=== PATIENT | male | born 1950 ===

== ENCOUNTER 2016-09-05 12:22 | Inpatient (IN) | payer OTHER ==
[2016-09-05 13:20] LABS: BASO # 0.1 K/uL (0.0-0.2); BASO % 0.9 % (0.0-2.0); EOS # 0.2 K/uL (0.0-0.7); EOS % 2.2 % (0.0-4.0); HEMOGLOBIN 11.6 g/dL (12.0-18.0); LYMPH # 1.9 K/uL (1.0-4.3); LYMPH % 25.7 % (20.0-40.0); MEAN CELL VOLUME 88.8 fL (80.0-94.0); MEAN CORPUSCULAR HEMOGLOBIN 29.7 pg (27.0-31.0); MEAN CORPUSCULAR HGB CONC 33.5 g/dL (33.0-37.0); MEAN PLATELET VOLUME 8.2 fL (7.2-11.7); MONO # 0.3 K/uL (0.0-0.8); MONO % 4.5 % (0.0-10.0); NEUT % 66.7 % (50.0-75.0); RBC 3.91 Mil/uL (4.40-5.90); WHITE BLOOD COUNT 7.5 K/uL (4.8-10.8)
[2016-09-05 13:24] LABS: ALBUMIN 4.2 g/dL (3.5-5.0)
[2016-09-05 13:26] LABS: GFR AFRICAN-AMERICAN > 60; GFR NON-AFRICAN AMERICAN 56
[2016-09-05 13:27] LABS: ALB/GLOB RATIO 1.4 (1.0-2.1); ALT/SGPT 24 U/L (21-72); AST/SGOT 26 U/L (17-59); BLOOD UREA NITROGEN 21 mg/dL (9-20)
[2016-09-05 13:28] LABS: CALCIUM 9.3 mg/dl (8.6-10.4); LIPASE 397 U/L (23-300)
--- NOTE | 2016-09-05 13:43 | C.PDOC ---
History Of Present Illness 66 y/o male with Hx of HTN and DM presents to ED with complaints of General body aches, sob and vomiting since this morning. Patient states he went to sleep fine last night and woke up with symptoms this morning. Patient denies fever, chills, dizziness, loc or any other complaints at this time. Contrary to triage patient denies chest pain and reports a general body pain. Time Seen by Provider: 09/05/16 13:30 Chief Complaint (Nursing): Chest Pain History Per: Patient History/Exam Limitations: no limitations Onset/Duration Of Symptoms: Hrs Past Medical History Reviewed: Historical Data, Nursing Documentation, Vital Signs Vital Signs: Last Vital Signs Temp 97.6 F 09/05/16 14:55 Pulse 79 09/05/16 14:55 Resp 14 09/05/16 14:55 BP 112/63 09/05/16 14:55 Pulse Ox 95 09/05/16 14:55 - Medical History PMH: HTN Surgical History: Appendectomy Family History: States: No Known Family Hx - Social History Hx Alcohol Use: No Hx Substance Use: No Review Of Systems Constitutional: Negative for: Fever, Chills Cardiovascular: Negative for: Chest Pain Respiratory: Positive for: Shortness of Breath Gastrointestinal: Positive for: Nausea, Vomiting. Negative for: Diarrhea Genitourinary: Negative for: Dysuria Musculoskeletal: Negative for: Back Pain Skin: Negative for: Rash Neurological: Negative for: Dizziness Physical Exam - Physical Exam Additional Physical Exam Comments: Constitutional: No acute distress. Head: Normocephalic. Atraumatic. Eyes: PERRL. ENT: Moist mucous membranes. Neck: Supple. Cardiovascular: Regular rate. Radial pulse 2+ bilaterally. Chest: No tenderness. Respiratory: Clear to auscultation bilaterally. GI: Soft. Epigastric Tenderness, no rebound or guarding Back: No CVA tenderness. Musculoskeletal: No tenderness or swelling of extremities. Skin: No rash. Neurologic: Alert, no focal deficit. ED Course And Treatment - Laboratory Results Result Diagrams: 09/05/16 13:04 09/05/16 13:04 ECG Rhythm: Sinus Rhythm ECG Interpretation: Normal Rate From EC (bpm) O2 Sat by Pulse Oximetry: 97 (RA) Pulse Ox Interpretation: Normal Medical Decision Making Medical Decision Making: CXR no acute disease. Lipase elevated. Abdominal US ordered. Dr. Griffith accepts patient for admission for acute pancreatitis. Disposition - Disposition Disposition: HOSPITALIZED Disposition Time: 15:03 Condition: FAIR - Clinical Impression Clinical Impression: Acute pancreatitis
--- NOTE | 2016-09-05 16:47 | RAD ---
HISTORY: body aches, cough COMPARISON: No prior. TECHNIQUE: Chest PA and lateral FINDINGS: LUNGS: No evidence of focal infiltrate or consolidation in the lungs. Small bibasilar atelectasis seen. PLEURA: No significant pleural effusion identified. No pneumothorax apparent. CARDIOVASCULAR: Normal. OSSEOUS STRUCTURES: No significant abnormalities. VISUALIZED UPPER ABDOMEN: Normal. OTHER FINDINGS: None. IMPRESSION: No radiographic evidence of pneumonia. No evidence of acute pulmonary disease. Small bibasilar atelectasis.
--- NOTE | 2016-09-05 17:02 | CP.PCM.HP ---
<TatiMandy - Last Filed: 09/05/16 18:43> History of Present Illness - History of Present Illness History of Present Illness: CC: "abdominal pain" 66 year old male with PMHx of DM, HTN, high cholesterol and triglycerides in the 999's presents with 1 days history of abdominal pain, back pain, nausea, vomiting. Patient recently arrived from [facility] in June 2016 and has not seen a doctor since then. Patient began to feel ill since yesterday but went to work today anyway. While at work patient felt like he was going to faint. Admits to dizziness and "passing out". Denies LOC, head trauma, fall. As per , patient has felt like this before when his triglycerides were very high. Admits to diffuse abdominal pain that radiates to the back. Admits to nausea and vomiting once today. Patient denies history of pancreatitis. Denies fevers, chills, diarrhea, constipation, SOB. Patient has no chest pain now or before. PMHx: DM, HTN, high cholesterol and triglycerides in the Medications: Glyburide 5 mg PO daily, Simvastatin 40 mg PO HS, Metformin 850 mg PO daily, Losartan 100 mg PO daily, Amlodipine 10 mg po at night, Gemfibrozil 600 mg PO BID. Surgery Hx: Appendectomy. Social Hx: quit heavy alcohol use 10 years ago. Drinks socially on the weekends. Quit tobacco abuse 10 years ago. Non smoker at this time. Denies drug use. Family Hx: monther with DM. Allergies: NKDA PMD: in [facility]. Present on Admission - Present on Admission Any Indicators Present on Admission: No Review of Systems - Constitutional Constitutional: Malaise. absent: Chills, Fatigue, Fever, Headache - EENT Eyes: absent: Blurred Vision, Change in Vision Ears: Dizziness - Cardiovascular Cardiovascular: absent: Chest Pain, Diaphoresis, Dyspnea, Pedal Edema - Respiratory Respiratory: absent: Cough, Dyspnea, Wheezing - Gastrointestinal Gastrointestinal: Abdominal Pain, Nausea, Vomiting. absent: Constipation, Diarrhea - Genitourinary Genitourinary: absent: Difficulty Urinating, Dysuria - Musculoskeletal Musculoskeletal: Back Pain. absent: Numbness, Tingling - Integumentary Integumentary: absent: Wounds - Neurological Neurological: Dizziness, Weakness. absent: Numbness, Tingling - Psychiatric Psychiatric: absent: Anxiety - Endocrine Endocrine: Fatigue. absent: Palpitations Past Patient History - Past Social History Smoking Status: Never Smoked - CARDIAC Hx Hypertension: Yes - ENDOCRINE/METABOLIC Hx Endocrine Disorders: Yes Hx Diabetes Mellitus Type 2: Yes - PSYCHIATRIC Hx Substance Use: No - SURGICAL HISTORY Hx Appendectomy: Yes Meds Allergies/Adverse Reactions: Allergies Allergy/AdvReac Type Severity Reaction Status Date / Time No Known Allergies Allergy Verified 09/05/16 12:38 Physical Exam - Constitutional Appears: No Acute Distress - Head Exam Head Exam: NORMAL INSPECTION - Eye Exam Eye Exam: EOMI, Normal appearance - ENT Exam ENT Exam: Mucous Membranes Moist - Neck Exam Neck exam: Positive for: Full Rom, Normal Inspection - Respiratory Exam Respiratory Exam: Clear to Auscultation Bilateral, NORMAL BREATHING PATTERN - Cardiovascular Exam Cardiovascular Exam: REGULAR RHYTHM, +S1, +S2 - GI/Abdominal Exam GI & Abdominal Exam: Normal Bowel Sounds, Soft, Tenderness (mild/epigastric). absent: Distended - Extremities Exam Extremities exam: Positive for: full ROM, normal inspection. Negative for: pedal edema - Back Exam Back exam: NORMAL INSPECTION. absent: CVA tenderness (L), CVA tenderness (R) - Neurological Exam Neurological exam: Alert, Oriented x3 - Psychiatric Exam Psychiatric exam: Normal Affect, Normal Mood - Skin Skin Exam: Normal Color, Warm Results - Vital Signs Recent Vital Signs: Last Vital Signs Temp 97.6 F 09/05/16 14:55 Pulse 79 09/05/16 14:55 Resp 14 09/05/16 14:55 BP 112/63 09/05/16 14:55 Pulse Ox 97 09/05/16 16:10 - Labs Result Diagrams: 09/05/16 13:04 09/05/16 13:04 Assessment & Plan (1) Acute pancreatitis Assessment and Plan: Admit to regular floor Lipase 397 CLD for now Aggresive fluid hydration. Normal Saline at 200 cc/hr Zofran IVP PRN for nausea Denies alcohol use. f/u lipid panel in the AM. Patient with reported history of triglycerides in the 1000's. f/u Amylase in the AM f/u AM labs Status: Acute (2) Dizziness Assessment and Plan: Patient felt like he is going to "pass out". f/u ECHO f/u carotid dopplers Status: Acute (3) Hyperlipidemia Assessment and Plan: Patient with reported history of triglycerides in the 1000's. f/u fasting lipid panel in the AM. Gemfibrozil 600 mg PO BID (home med) Status: Acute (4) Diabetes mellitus Assessment and Plan: Consistent carbohydrate clear liquid diet f/u Hgb A1c in the AM Insulin sliding scale Accu checks ACHS Status: Acute (5) Prophylactic measure Assessment and Plan: SCDs Heparin 5000 U SC Q8H Protonix 40 mg IVP daily Status: Acute <Eduard Griffith - Last Filed: 09/06/16 13:23> Results - Vital Signs Recent Vital Signs: Last Vital Signs Temp 97.6 F 09/06/16 07:31 Pulse 62 09/06/16 07:31 Resp 20 09/06/16 07:31 BP 110/62 09/06/16 07:31 Pulse Ox 98 09/06/16 07:31 - Labs Result Diagrams: 09/06/16 07:15 09/06/16 07:11 Labs: Laboratory Results - last 24 hr 09/05/16 09/06/16 09/06/16 21:37 02:11 07:00 WBC RBC Hgb Hct MCV MCH MCHC RDW Plt Count MPV Neut % (Auto) Lymph % (Auto) [place] % (Auto) Eos % (Auto) Baso % (Auto) Neut # Lymph # [place] # Eos # Baso # Sodium Potassium Chloride Carbon Dioxide Anion Gap BUN Creatinine Est GFR ( Amer) Est GFR (Non-Af Amer) POC Glucose (mg/dL) 100 98 Random Glucose Calcium Total Bilirubin AST ALT Alkaline Phosphatase Total Protein Albumin Globulin Albumin/Globulin Ratio Triglycerides Cholesterol LDL Cholesterol Direct HDL Cholesterol Urine Color Straw Urine Clarity Clear Urine pH 6.0 Ur Specific [place] 1.010 Urine Protein Negative Urine Glucose (UA) Normal Urine Ketones Negative Urine Blood 2+ H Urine Nitrate Negative Urine Bilirubin Negative Urine Urobilinogen Normal Ur Leukocyte Esterase Neg Urine WBC (Auto) 1 Urine RBC (Auto) 8 H 09/06/16 09/06/16 09/06/16 07:02 07:11 07:15 WBC 7.2 RBC 3.77 L Hgb 11.3 L Hct 33.5 L MCV 89.0 MCH 30.0 MCHC 33.7 RDW 12.9 Plt Count 319 MPV 8.4 Neut % (Auto) 61.1 Lymph % (Auto) 29.1 [place] % (Auto) 5.1 Eos % (Auto) 4.2 H Baso % (Auto) 0.5 Neut # 4.4 Lymph # 2.1 [place] # 0.4 Eos # 0.3 Baso # 0.0 Sodium 138 Potassium 4.1 Chloride 107 Carbon Dioxide 22 Anion Gap 12 BUN 14 Creatinine 0.9 Est GFR ( Amer) > 60 Est GFR (Non-Af Amer) > 60 POC Glucose (mg/dL) 108 Random Glucose 89 Calcium 8.0 L Total Bilirubin 0.7 AST 24 ALT 24 Alkaline Phosphatase 51 Total Protein 6.3 Albumin 3.5 Globulin 2.8 Albumin/Globulin Ratio 1.3 Triglycerides 206 H Cholesterol 214 H LDL Cholesterol Direct 126 HDL Cholesterol 39 Urine Color Urine Clarity Urine pH Ur Specific [place] Urine Protein Urine Glucose (UA) Urine Ketones Urine Blood Urine Nitrate Urine Bilirubin Urine Urobilinogen Ur Leukocyte Esterase Urine WBC (Auto) Urine RBC (Auto) 09/06/16 11:14 WBC RBC Hgb Hct MCV MCH MCHC RDW Plt Count MPV Neut % (Auto) Lymph % (Auto) [place] % (Auto) Eos % (Auto) Baso % (Auto) Neut # Lymph # [place] # Eos # Baso # Sodium Potassium Chloride Carbon Dioxide Anion Gap BUN Creatinine Est GFR ( Amer) Est GFR (Non-Af Amer) POC Glucose (mg/dL) 89 Random Glucose Calcium Total Bilirubin AST ALT Alkaline Phosphatase Total Protein Albumin Globulin Albumin/Globulin Ratio Triglycerides Cholesterol LDL Cholesterol Direct HDL Cholesterol Urine Color Urine Clarity Urine pH Ur Specific [place] Urine Protein Urine Glucose (UA) Urine Ketones Urine Blood Urine Nitrate Urine Bilirubin Urine Urobilinogen Ur Leukocyte Esterase Urine WBC (Auto) Urine RBC (Auto) Attending/Attestation - Attestation I have personally seen and examined this patient.: Yes I have fully participated in the care of the patient.: Yes I have reviewed all pertinent clinical information: Yes Notes (Text): 09/06/16 13:21 Patient was seen and examined at bedside with the resident at the time of admission Patient admitted for acute pancreatitis He is complaining of abdominal pain and is tender to palpation We'll start the patient clear liquid diet and also put on high a dose of fluids Patient has history of hyperlipidemia which could be the etiology of for acute pancreatitis We will check lipid profile in the morning I agree with the history and physical and assessment/plan by the resident.
--- NOTE | 2016-09-05 17:50 | US ---
HISTORY: pancreatitis COMPARISON: None. TECHNIQUE: Sonographic evaluation of the abdomen. FINDINGS: LIVER: Measures 17.4 cm. Heterogeneous increased echogenicity of the liver parenchyma. No mass. No intrahepatic bile duct dilatation. GALLBLADDER: Unremarkable. No gallstones. COMMON BILE DUCT: Measures 3.5 mm. No stones. No dilatation. PANCREAS: Unremarkable as visualized. No mass. No ductal dilatation. RIGHT KIDNEY: Measures 11.9 x 5.4 x 6.4cm. Normal echogenicity. No calculus, mass, or hydronephrosis. There are cystic lesions seen at the right kidney. The largest cyst measures 4.2 x 3.5 x 2.9 centimeter. LEFT KIDNEY: Measures 12.9 x 5.8 x 5.4cm. There is suspicious for mass lesion at the upper pole of the left kidney measures 4 x 2.9 x 3.2 centimeter demonstrate increased blood flow. The possibility of malignant neoplasm should be excluded. There is also cyst seen at the left kidney mid to lower pole measures 3.9 x 4.1 x 4.3 centimeter. SPLEEN: Normal in size and contour. No mass. AORTA: No aneurysmal dilatation. IVC: Unremarkable. OTHER FINDINGS: None. IMPRESSION: No evidence of cholelithiasis or cholecystitis. Mild hepatomegaly with findings suggestive of moderate hepatic steatosis. Suspicious for solid mass lesion at the upper pole of the left kidney measures 4 centimeter. Further assessment is recommended. The possibility of malignant neoplasm should be considered. Enhanced CT or MRI of the abdomen is suggested using renal protocol.
[2016-09-05] MEDS: Sodium Chloride 0.9% 1,000 ML IV SCH ×2 (18:53→22:15)
[2016-09-05 19:08] LABS: AMYLASE 93 U/L (30-110)
[2016-09-05] MEDS: (Novolin R) Insulin Human Regular 100 units/ml vial SC SCH (22:06)
[2016-09-06 00:16] VITALS: RESP 20
--- NOTE | 2016-09-06 01:39 | CP.PCM.PN ---
<Kasie Alarcon - Last Filed: 09/06/16 08:36> Subjective - Date & Time of Evaluation Date of Evaluation: 09/06/16 Time of Evaluation: 00:00 - Subjective Subjective: PGY-1 Medicine note- Dr. Griffith's service Patient was examined at bedside this AM. Patient denied chest pain, shortness of breath, diarrhea, or constipation. Objective - Vital Signs/Intake and Output Vital Signs (last 24 hours): Temp Pulse Resp BP Pulse Ox 98 F 74 20 115/66 99 09/06/16 00:00 09/06/16 00:00 09/06/16 00:00 09/06/16 00:00 09/06/16 00:00 - Medications Medications: Current Medications Amlodipine Besylate (Norvasc) 5 mg PO HS [facility] Last Admin: 09/05/16 22:12 Dose: 5 mg Gemfibrozil (Lopid) 600 mg PO BID [facility] Heparin Sodium (Porcine) (Heparin) 5,000 units SC Q8 [facility] Last Admin: 09/05/16 22:15 Dose: 5,000 units Sodium Chloride (Sodium Chloride 0.9%) 1,000 mls @ 200 mls/hr IV .Q5H [facility] Last Admin: 09/05/16 22:15 Dose: 200 mls/hr Insulin Human Regular (Novolin R) 0 unit SC ACHS [facility] PRN Reason: Protocol Last Admin: 09/05/16 22:06 Dose: Not Given Losartan Potassium (Cozaar) 100 mg PO QAM [facility] Ondansetron HCl (Zofran Inj) 4 mg IVP Q6 PRN PRN Reason: Nausea/Vomiting Pantoprazole Sodium (Protonix Inj) 40 mg IVP DAILY [facility] Pneumococcal Polyvalent Vaccine (Pneumovax 23 Vaccine) 0.5 ml IM .ONCE ONE Stop: 09/07/16 10:01 Rosuvastatin Calcium (Crestor) 20 mg PO [facility] Last Admin: 09/05/16 22:12 Dose: 20 mg - Constitutional Appears: No Acute Distress - Head Exam Head Exam: NORMAL INSPECTION, NORMOCEPHALIC - Respiratory Exam Respiratory Exam: Clear to Ausculation Bilateral, NORMAL BREATHING PATTERN - Cardiovascular Exam Cardiovascular Exam: REGULAR RHYTHM, +S1, +S2 - GI/Abdominal Exam GI & Abdominal Exam: Soft, Normal Bowel Sounds. absent: Tenderness - Neurological Exam Neurological Exam: Alert, Awake, Oriented x3 Assessment and Plan - Assessment and Plan (Free Text) Assessment: 66 year old male with PMHx of DM, HTN, high cholesterol and triglycerides in the presents with 1 days history of abdominal pain, back pain, nausea, vomiting. Plan: 1.) Acute Pancreatitis Admit to regular floor Lipase 397 CLD for now Aggresive fluid hydration. Normal Saline at 200 cc/hr Zofran IVP PRN for nausea Denies alcohol use. Cholesterol: 214; LDL: 123; HDL: 39; Triglycerides: 206 Amylase: 93 2.) Dizziness Patient felt like he is going to "pass out". f/u ECHO f/u carotid dopplers 3.) Hyperlipidemia Patient with reported history of triglycerides in the . Cholesterol: 214; LDL: 123; HDL: 39; Triglycerides: 206 Gemfibrozil 600 mg PO BID (home med) Crestor 20mg PO HS 4.) Diabetes Mellitus Consistent carbohydrate clear liquid diet f/u Hgb A1c in the AM Insulin sliding scale Accu checks ACHS 5.) Prophylaxis SCDs Heparin 5000 U SC Q8H Protonix 40 mg IVP daily <Eduard Griffith - Last Filed: 09/06/16 15:18> Objective - Vital Signs/Intake and Output Vital Signs (last 24 hours): Temp Pulse Resp BP Pulse Ox 97.6 F 62 20 110/62 98 09/06/16 07:31 09/06/16 07:31 09/06/16 07:31 09/06/16 07:31 09/06/16 07:31 Intake and Output: 09/06/16 09/06/16 06:59 18:59 Intake Total 1900 1700 Output Total 700 Balance 1200 1700 - Medications Medications: Current Medications Amlodipine Besylate (Norvasc) 5 mg PO HS [facility] Last Admin: 09/05/16 22:12 Dose: 5 mg Gemfibrozil (Lopid) 600 mg PO BID [facility] Last Admin: 09/06/16 10:21 Dose: 600 mg Heparin Sodium (Porcine) (Heparin) 5,000 units SC Q8 [facility] Last Admin: 09/06/16 13:44 Dose: 5,000 units Sodium Chloride (Sodium Chloride 0.9%) 1,000 mls @ 200 mls/hr IV .Q5H [facility] Last Admin: 09/06/16 10:22 Dose: 200 mls/hr Insulin Human Regular (Novolin R) 0 unit SC ACHS [facility] PRN Reason: Protocol Last Admin: 09/06/16 11:48 Dose: Not Given Losartan Potassium (Cozaar) 100 mg PO QAM [facility] Last Admin: 09/06/16 10:21 Dose: 100 mg Ondansetron HCl (Zofran Inj) 4 mg IVP Q6 PRN PRN Reason: Nausea/Vomiting Pantoprazole Sodium (Protonix Inj) 40 mg IVP DAILY [facility] Last Admin: 09/06/16 10:21 Dose: 40 mg Pneumococcal Polyvalent Vaccine (Pneumovax 23 Vaccine) 0.5 ml IM .ONCE ONE Stop: 09/07/16 10:01 Rosuvastatin Calcium (Crestor) 20 mg PO HS [facility] Last Admin: 09/05/16 22:12 Dose: 20 mg - Labs Labs: 09/06/16 07:15 09/06/16 07:11 Attending/Attestation - Attestation I have personally seen and examined this patient.: Yes I have fully participated in the care of the patient.: Yes I have reviewed all pertinent clinical information, including history, physical exam and plan: Yes Notes (Text): 09/06/16 15:11 Patient was seen and examined at bedside He states that he still has the mild abdominal discomfort in the epigastric region He also states that he is feeling hungry and he wants to eat We will continue IV hydration-we will advance the diet to soft diet We will monitor for any increase in abdominal pain Patient's acute pancreatitis is likely secondary to hypertriglyceridemia. We'll continue his medication for hypertriglyceridemia and hypercholesterolemia Abdominal ultrasound shows solid mass on the left kidney and we will obtain a CT scan of the abdomen and pelvis with renal protocol We will also obtain a urology evaluation Patient also had a syncopal episode of for syncope workup is in progress Carotid Dopplers were done which are negative neck and follow-up echocardiogram. I agree with the history and physical and assessment/plan by the resident with the exceptions noted hair.
[2016-09-06] MEDS: Sodium Chloride 0.9% 1,000 ML IV SCH ×5 (03:30→23:15)
[2016-09-06 07:28] LABS: BASO % 0.5 % (0.0-2.0); EOS # 0.3 K/uL (0.0-0.7); EOS % 4.2 % (0.0-4.0); HEMOGLOBIN 11.3 g/dL (12.0-18.0); LYMPH # 2.1 K/uL (1.0-4.3); LYMPH % 29.1 % (20.0-40.0); MEAN CORPUSCULAR HGB CONC 33.7 g/dL (33.0-37.0); MEAN PLATELET VOLUME 8.4 fL (7.2-11.7); MONO # 0.4 K/uL (0.0-0.8); MONO % 5.1 % (0.0-10.0); NEUT # 4.4 K/uL (1.8-7.0); NEUT % 61.1 % (50.0-75.0); RBC 3.77 Mil/uL (4.40-5.90); RED CELL DISTRIBUTION WIDTH 12.9 % (11.5-14.5); WHITE BLOOD COUNT 7.2 K/uL (4.8-10.8)
[2016-09-06] MEDS: (Novolin R) Insulin Human Regular 100 units/ml vial SC SCH ×4 (07:30→21:24)
[2016-09-06 07:44] LABS: ALBUMIN 3.5 g/dL (3.5-5.0)
[2016-09-06 07:47] LABS: ALB/GLOB RATIO 1.3 (1.0-2.1); AST/SGOT 24 U/L (17-59); BLOOD UREA NITROGEN 14 mg/dL (9-20); GFR AFRICAN-AMERICAN > 60; GFR NON-AFRICAN AMERICAN > 60
[2016-09-06 07:48] LABS: ALT/SGPT 24 U/L (21-72); HDL CHOLESTEROL 39 mg/dL (30-70)
[2016-09-06 07:59] LABS: LDL CHOLESTEROL 126 mg/dL (0-129)
[2016-09-06 08:25] LABS: URINE BILIRUBIN NEGATIVE (NEGATIVE); URINE BLOOD 2+ (NEGATIVE); URINE CLARITY Clear (Clear); URINE COLOR Straw (YELLOW); URINE GLUCOSE (UA) NORMAL (Normal); URINE LEUKOCYTE ESTERASE NEG Leu/uL (Negative); URINE NITRATE NEGATIVE (NEGATIVE); URINE PROTEIN NEGATIVE (NEGATIVE); URINE UROBILINOGEN NORMAL mg/dL (0.2-1.0)
--- NOTE | 2016-09-06 11:08 | VASCLAB ---
PROCEDURE: HISTORY: dizziness COMPARISON: None available. TECHNIQUE: Grayscale and duplex Doppler evaluation of the cervical carotid and vertebral arteries were performed. The common carotid, carotid bifurcations and cervical Internal Carotid Artery (ICA) and proximal External Carotid Artery (ECA) were evaluated. The vertebral arteries were evaluated for gross patency and flow direction. Report prepared by Candi Silverman Barb FINDINGS: RIGHT CAROTID ARTERIES: 1. Common Carotid Artery: No significant focal plaque formation of the right common carotid artery. Maximum Peak Systolic velocity: 71.3 cm/sec: End-diastolic velocity 15.9 cm/sec. 2. Carotid Bifurcation: Heterogeneous plaque formation. Maximum Peak Systolic velocity: 47.2 cm/sec: End-diastolic velocity 9.8 cm/sec. 3. Internal Carotid Artery: No significant focal plaque. Plaque description: 3.1. Proximal Segment: Peak systolic velocity 48.3 cm/sec: End-diastolic velocity 0-15% cm/sec - % stenosis 0-15% 3.2. Middle Segment: Peak systolic velocity 54.8 cm/sec: End-diastolic velocity 21.1 cm/sec - % stenosis 0-15% 3.3. Distal Segment: Peak systolic velocity 50.3 cm/sec: End-diastolic velocity 22.9 cm/sec - % stenosis 0-15% 4. External Carotid Artery: No significant focal plaque formation. Peak systolic velocity 79.1 cm/sec 5. ICA/CCA Ratio: 0.9 LEFT CAROTID ARTERIES: 1. Common Carotid Artery: No significant focal plaque formation of the left common carotid artery. Maximum Peak Systolic velocity: 83.4 cm/sec: End-diastolic velocity 14.2 cm/sec. 2. Carotid Bifurcation: Heterogeneous plaque formation. Maximum Peak Systolic velocity: 51.6 cm/sec: End-diastolic velocity 12.0 cm/sec. 3. Internal Carotid Artery: Focal calcific plaque in the proximal segment. 3.1. Proximal Segment: Peak systolic velocity 63.4 cm/sec: End-diastolic velocity 19.0 cm/sec - % stenosis 0-15% 3.2. Middle Segment: Peak systolic velocity 48.1 cm/sec: End-diastolic velocity 14.8 cm/sec - % stenosis 0-15% 3.3. Distal Segment: Peak systolic velocity 49.0 cm/sec: End-diastolic velocity 16.3 cm/sec - % stenosis 0-15% 4. External Carotid Artery: No significant focal plaque formation. Peak systolic velocity 69.8 cm/sec 5. ICA/CCA Ratio: 1.2 VERTEBRAL ARTERIES: 1. Right Vertebral Artery: The right vertebral artery flow direction is antegrade. 2. Left Vertebral Artery: The left vertebral artery flow direction is antegrade. OTHER FINDINGS: 1. Right Brachial Blood pressure: Not optimally obtained. 2. Left Brachial Blood pressure: Not optimally obtained. IMPRESSION: RIGHT: Duplex scan does not suggest hemodynamically significant stenosis of the right extracranial carotid arteries. LEFT: Duplex scan does not suggest hemodynamically significant stenosis of the left extracranial carotid arteries. Focal calcific plaque in the proximal segment of the left internal carotid artery.
--- NOTE | 2016-09-06 18:19 | CT ---
PROCEDURE: CT Abdomen and Pelvis with contrast HISTORY: Renal Mass, R/O Malignant neoplasn COMPARISON: None. TECHNIQUE: Contrast dose: 100 mL Visipaque 320 Radiation dose: Total exam DLP = 755.67 mGy-cm. This CT exam was performed using one or more of the following dose reduction techniques: Automated exposure control, adjustment of the mA and/or kV according to patient size, and/or use of iterative reconstruction technique. FINDINGS: LOWER THORAX: Calcified granuloma in superior segment right lower lobe. LIVER: Unremarkable. No gross lesion or ductal dilatation. GALLBLADDER AND BILE DUCTS: Unremarkable. PANCREAS: Unremarkable. No gross lesion or ductal dilatation. No peripancreatic fluid or edema. SPLEEN: Unremarkable. ADRENALS: Unremarkable. No mass. KIDNEYS AND URETERS: Multiple bilateral renal cysts. Left upper pole heterogeneously enhancing mass measuring 3.6 x 3.9 x 4.7 cm. Suspicious for renal cell neoplasm. Biopsy or excision advised. No hydronephrosis. No renal calculus. VASCULATURE: No evidence of tumor/ thrombus in left renal vein or inferior vena cava. No evidence of abdominal aortic aneurysm. BOWEL: Scattered colonic diverticulae. No evidence of bowel obstruction. APPENDIX: Not identified. No secondary findings to suggest acute appendicitis. PERITONEUM: Unremarkable. No free fluid. No free air. LYMPH NODES: Unremarkable. No enlarged lymph nodes. BLADDER: Suboptimally distended. Mild mural thickening likely secondary to poor distension. REPRODUCTIVE: Normal prostate BONES: No acute fracture. OTHER FINDINGS: None. IMPRESSION: Enhancing 4.7 cm left upper pole renal mass suspicious for renal cell neoplasm. Multiple bilateral renal cysts. No other significant abnormality.
[2016-09-06] MEDS ORDERED: Bisacodyl 5mg EC Tab PO ONE (21:25)
--- NOTE | 2016-09-06 22:02 | CARD ---
APPROVED REPORT EKG Measurement Heart [id number] <Conclusion> Sinus bradycardia Otherwise normal ECG
--- NOTE | 2016-09-06 22:59 | CARD ---
APPROVED REPORT EXAM: Two-dimensional and M-mode echocardiogram with Doppler and color Doppler. Other Information Quality : GoodRhythm : NSR INDICATION Dizziness and Vertigo Dyspnea RISK FACTORS Hyperlipidemia M-Mode DIMENSIONS RVDd1.29 (2.1-3.2cm)Left Atrium (MM)3.79 (2.5-4.0cm) IVSd1.13 (0.7-1.1cm)Aortic Root3.59 (2.2-3.7cm) LVDd5.82 (4.0-5.6cm)Aortic Cusp Exc.1.91 (1.5-2.0cm) PWd1.05 (0.7-1.1cm)FS (%) 29 % LVDs4.14 (2.0-3.8cm)LVEF (%)55 (>50%) Mitral Valve MV E Hcvtgydp27.5cm/sMV A Jbbylfmo05.8cm/sE/A ratio1.7 TDI E/Lateral E'0.0E/Medial E'0.0 Tricuspid Valve TR Peak Rhphfrrj632do/sTR Peak Gr.[id number] LEFT VENTRICLE The left ventricle is normal size. There is normal left ventricular wall thickness. Left ventricle systolic function is normal with Ejection Fraction of 55-60%. There is normal LV segmental wall motion. The left ventricular diastolic function is normal. RIGHT VENTRICLE The right ventricle is normal size. The right ventricular systolic function is normal. ATRIA The left atrium size is normal. The right atrium size is normal. AORTIC VALVE The aortic valve is mildly thickened. The aortic valve is probably trileaflet. There is trace aortic regurgitation. There is no aortic valvular stenosis. There is no aortic valvular vegetation. MITRAL VALVE Mitral annular calcification is mild. There is no evidence of mitral valve prolapse. There is no mitral valve stenosis. Mitral regurgitation is trace. TRICUSPID VALVE The tricuspid valve is normal in structure. There is trace to mild tricuspid regurgitation. Right ventricular systolic pressure is estimated at less than 30 mmHg. There is no pulmonary hypertension. There is no tricuspid valve prolapse or vegetation. There is no tricuspid valve stenosis. PULMONIC VALVE The pulmonic valve is not well visualized. There is no pulmonic valvular regurgitation. GREAT VESSELS The aortic root is normal in size. The IVC is normal in size and collapses >50% with inspiration. PERICARDIAL EFFUSION There is no pericardial effusion. There is no pleural effusion. <Conclusion> The left ventricle is normal size. Left ventricle systolic function is normal. Left ventricle systolic function is normal with Ejection Fraction of 55-60%. The left ventricular diastolic function is normal. The right ventricle is normal size. The right ventricular systolic function is normal. The left atrium size is normal. The right atrium size is normal. There is trace to mild tricuspid regurgitation.
[2016-09-07] MEDS: Sodium Chloride 0.9% 1,000 ML IV SCH ×4 (04:00→21:58)
--- NOTE | 2016-09-07 05:33 | CP.PCM.PN ---
<Kasie Alarcon - Last Filed: 09/07/16 05:24> Subjective - Date & Time of Evaluation Date of Evaluation: 09/07/16 Time of Evaluation: 00:20 - Subjective Subjective: PGY-1 Medicine note- Dr. Griffith's service Patient was examined at bedside this AM. Patient stated he was having bilateral calf pain. Patient stated he has not had a bowel movement in 2 days. Patient stated he had epigastric pain that was tender to touch 7/10. Patient denied chest pain, shortness of breath, difficulty breathing, or palpitations. Objective - Vital Signs/Intake and Output Vital Signs (last 24 hours): Temp Pulse Resp BP Pulse Ox 98.6 F 59 L 20 112/64 98 09/07/16 00:00 09/07/16 00:00 09/07/16 00:00 09/07/16 00:00 09/07/16 00:00 Intake and Output: 09/06/16 09/07/16 18:59 06:59 Intake Total 1700 Balance 1700 - Medications Medications: Current Medications Amlodipine Besylate (Norvasc) 5 mg PO HS [facility] Last Admin: 09/06/16 21:22 Dose: 5 mg Gemfibrozil (Lopid) 600 mg PO BID [facility] Last Admin: 09/06/16 17:37 Dose: 600 mg Heparin Sodium (Porcine) (Heparin) 5,000 units SC Q8 [facility] Last Admin: 09/06/16 21:22 Dose: 5,000 units Sodium Chloride (Sodium Chloride 0.9%) 1,000 mls @ 200 mls/hr IV .Q5H [facility] Last Admin: 09/06/16 23:15 Dose: Not Given Insulin Human Regular (Novolin R) 0 unit SC ACHS [facility] PRN Reason: Protocol Last Admin: 09/06/16 21:24 Dose: Not Given Losartan Potassium (Cozaar) 100 mg PO QAM [facility] Last Admin: 09/06/16 10:21 Dose: 100 mg Ondansetron HCl (Zofran Inj) 4 mg IVP Q6 PRN PRN Reason: Nausea/Vomiting Pantoprazole Sodium (Protonix Inj) 40 mg IVP DAILY [facility] Last Admin: 09/06/16 10:21 Dose: 40 mg Pneumococcal Polyvalent Vaccine (Pneumovax 23 Vaccine) 0.5 ml IM .ONCE ONE Stop: 06/25/17 10:01 Rosuvastatin Calcium (Crestor) 20 mg PO HS [facility] Last Admin: 09/06/16 21:22 Dose: 20 mg - Labs Labs: 09/06/16 07:15 09/06/16 07:11 - Constitutional Appears: No Acute Distress - Head Exam Head Exam: NORMAL INSPECTION, NORMOCEPHALIC - Eye Exam Eye Exam: EOMI, PERRL Pupil Exam: NORMAL ACCOMODATION - ENT Exam ENT Exam: Mucous Membranes Moist - Respiratory Exam Respiratory Exam: Clear to Ausculation Bilateral, NORMAL BREATHING PATTERN. absent: Rales, Rhonchi, Wheezes, Respiratory Distress, Stridor - Cardiovascular Exam Cardiovascular Exam: REGULAR RHYTHM, RRR, +S1, +S2. absent: JVD - GI/Abdominal Exam GI & Abdominal Exam: Soft, Tenderness (epigastric tenderness), Normal Bowel Sounds. absent: Guarding - Extremities Exam Extremities Exam: Tenderness (bilateral calf tenderness). absent: Joint Swelling, Pedal Edema - Neurological Exam Neurological Exam: Alert, Awake, Oriented x3 - Skin Skin Exam: Dry, Intact, Normal Color, Warm. absent: Rash Assessment and Plan - Assessment and Plan (Free Text) Assessment: 66 year old male with PMHx of DM, HTN, high cholesterol and triglycerides in the 999's presents with 1 days history of abdominal pain, back pain, nausea, vomiting. Plan: 1.) Acute Pancreatitis - Admit to regular floor - Lipase 397 - CLD for now - Aggresive fluid hydration. Normal Saline at 200 cc/hr - Zofran IVP PRN for nausea - Denies alcohol use. - Cholesterol: 214; LDL: 123; HDL: 39; Triglycerides: 206 - Amylase: 93 2.) Dizziness - Patient felt like he is going to "pass out". - f/u ECHO -Carotid dopplers (09/05/16): Right duplex scan does not suggeset hemodynamically significant stenosis of the right extra cranial carotid arteries. Left duplex scan does not suggest hemodynamically significant stenosis of the left extra cranial carotis arteries. Focal calcific plaque in the proximal segment of the left internal carotid artery. 3.) Bilateral Calf Pain - f/u bilateral venous doppler 4.) Constipation - Ordered Ducolax 5.) Hyperlipidemia - Patient with reported history of triglycerides in the . - Cholesterol: 214; LDL: 123; HDL: 39; Triglycerides: 206 - Gemfibrozil 600 mg PO BID (home med) - Crestor 20mg PO HS 7.) Diabetes Mellitus - Consistent carbohydrate clear liquid diet - f/u Hgb A1c in the AM - Insulin sliding scale - Accu checks ACHS 8.) Prophylaxis - SCDs - Heparin 5000 U SC Q8H - Protonix 40 mg IVP daily <ÁngelaPeter H - Last Filed: 09/07/16 12:58> Objective - Vital Signs/Intake and Output Vital Signs (last 24 hours): Temp Pulse Resp BP Pulse Ox 97.8 F 56 L 20 124/78 98 09/07/16 07:41 09/07/16 07:41 09/07/16 07:41 09/07/16 07:41 09/07/16 07:41 Intake and Output: 09/07/16 09/07/16 06:59 18:59 Intake Total 1900 Output Total 900 Balance 1000 - Medications Medications: Current Medications Amlodipine Besylate (Norvasc) 5 mg PO HS [facility] Last Admin: 09/06/16 21:22 Dose: 5 mg Gemfibrozil (Lopid) 600 mg PO BID [facility] Last Admin: 09/07/16 11:10 Dose: 600 mg Heparin Sodium (Porcine) (Heparin) 5,000 units SC Q8 [facility] Last Admin: 09/07/16 05:35 Dose: 5,000 units Sodium Chloride (Sodium Chloride 0.9%) 1,000 mls @ 200 mls/hr IV .Q5H [facility] Last Admin: 09/07/16 11:11 Dose: Not Given Insulin Human Regular (Novolin R) 0 unit SC ACHS [facility] PRN Reason: Protocol Last Admin: 09/07/16 11:58 Dose: Not Given Losartan Potassium (Cozaar) 100 mg PO QAM [facility] Last Admin: 09/07/16 11:09 Dose: 100 mg Ondansetron HCl (Zofran Inj) 4 mg IVP Q6 PRN PRN Reason: Nausea/Vomiting Pantoprazole Sodium (Protonix Inj) 40 mg IVP DAILY [facility] Last Admin: 09/07/16 11:10 Dose: 40 mg Rosuvastatin Calcium (Crestor) 20 mg PO HS [facility] Last Admin: 09/06/16 21:22 Dose: 20 mg - Labs Labs: 09/07/16 07:39 06/25/17 07:39 Attending/Attestation - Attestation I have personally seen and examined this patient.: Yes I have fully participated in the care of the patient.: Yes I have reviewed all pertinent clinical information, including history, physical exam and plan: Yes Notes (Text): Medical Attending: Patient was seen and examined by me, agree with the above note by the resident. The patient was seen completely eating lunch and he did ok. He did not vommit, he reported he did have epigastric pain but minimal. The echo was done and was ok, also had normal carotid studies. Abad Motta 09/07/16 12:57
[2016-09-07 07:46] LABS: BASO # 0.1 K/uL (0.0-0.2); BASO % 1.3 % (0.0-2.0); EOS # 0.2 K/uL (0.0-0.7); EOS % 3.5 % (0.0-4.0); HEMOGLOBIN 12.1 g/dL (12.0-18.0); LYMPH % 32.2 % (20.0-40.0); MEAN CELL VOLUME 89.9 fL (80.0-94.0); MEAN CORPUSCULAR HEMOGLOBIN 30.4 pg (27.0-31.0); MEAN CORPUSCULAR HGB CONC 33.8 g/dL (33.0-37.0); MEAN PLATELET VOLUME 8.7 fL (7.2-11.7); MONO # 0.3 K/uL (0.0-0.8); MONO % 4.3 % (0.0-10.0); NEUT # 3.7 K/uL (1.8-7.0); NEUT % 58.7 % (50.0-75.0); RBC 3.98 Mil/uL (4.40-5.90); RED CELL DISTRIBUTION WIDTH 12.8 % (11.5-14.5); WHITE BLOOD COUNT 6.3 K/uL (4.8-10.8)
[2016-09-07 08:02] LABS: ALBUMIN 3.9 g/dL (3.5-5.0)
[2016-09-07 08:04] LABS: GFR AFRICAN-AMERICAN > 60; GFR NON-AFRICAN AMERICAN > 60
[2016-09-07 08:05] LABS: ALB/GLOB RATIO 1.2 (1.0-2.1); AST/SGOT 20 U/L (17-59); BLOOD UREA NITROGEN 11 mg/dL (9-20)
[2016-09-07 08:06] LABS: ALT/SGPT 20 U/L (21-72); CALCIUM 8.6 mg/dl (8.6-10.4); MAGNESIUM 1.8 mg/dL (1.6-2.3)
[2016-09-07] MEDS: (Novolin R) Insulin Human Regular 100 units/ml vial SC SCH ×4 (08:16→21:29)
[2016-09-07] MEDS ORDERED: Pneumococcal 23-Valent Vaccine IM ONE (10:00)
[2016-09-08] MEDS: Sodium Chloride 0.9% 1,000 ML IV SCH ×5 (01:00→21:22)
[2016-09-08 06:33] LABS: BASO % 0.5 % (0.0-2.0); EOS # 0.3 K/uL (0.0-0.7); EOS % 6.5 % (0.0-4.0); HEMOGLOBIN 11.3 g/dL (12.0-18.0); LYMPH # 1.4 K/uL (1.0-4.3); LYMPH % 27.8 % (20.0-40.0); MEAN CELL VOLUME 88.2 fL (80.0-94.0); MEAN CORPUSCULAR HEMOGLOBIN 30.3 pg (27.0-31.0); MEAN CORPUSCULAR HGB CONC 34.4 g/dL (33.0-37.0); MEAN PLATELET VOLUME 8.2 fL (7.2-11.7); MONO # 0.3 K/uL (0.0-0.8); MONO % 5.3 % (0.0-10.0); NEUT % 59.9 % (50.0-75.0); RBC 3.73 Mil/uL (4.40-5.90); RED CELL DISTRIBUTION WIDTH 12.7 % (11.5-14.5)
[2016-09-08 06:39] LABS: ALBUMIN 3.6 g/dL (3.5-5.0)
[2016-09-08 06:42] LABS: ALB/GLOB RATIO 1.2 (1.0-2.1); AST/SGOT 17 U/L (17-59); BLOOD UREA NITROGEN 10 mg/dL (9-20); GFR AFRICAN-AMERICAN > 60; GFR NON-AFRICAN AMERICAN > 60
[2016-09-08 06:43] LABS: ALT/SGPT 22 U/L (21-72); CALCIUM 8.5 mg/dl (8.6-10.4); MAGNESIUM 1.6 mg/dL (1.6-2.3)
[2016-09-08] MEDS: (Novolin R) Insulin Human Regular 100 units/ml vial SC SCH ×4 (08:11→21:21)
--- NOTE | 2016-09-08 13:20 | VASCLAB ---
PROCEDURE: Lower Extremity Venous Duplex Exam. HISTORY: Pain in limb PRIORS: None. TECHNIQUE: Bilateral common femoral, femoral, popliteal and posterior tibial, peroneal and great saphenous veins were evaluated. Flow was assessed with color Doppler, compressibility, assessment of phasic flow and augmentation response. Report prepared by SHANICE Post FINDINGS: RIGHT: 1. Common Femoral Vein: 1.1. Compressibility - Fully compressible: Thrombus - None : Flow - Phasic: Augmentation -Normal: Reflux - None. 2. Femoral Vein: 2.1. Compressibility - Fully compressible: Thrombus - None : Flow - Phasic: Augmentation -Normal: Reflux - None. 3. Popliteal Vein: 3.1. Compressibility - Fully compressible: Thrombus - None : Flow - Phasic: Augmentation -Normal: Reflux - None. 4. Posterior Tibial Vein: 4.1. Compressibility - Fully compressible: Thrombus - None: Flow - Phasic: Augmentation -Normal: Reflux - None. 5. Peroneal Vein: 5.1. Compressibility - Fully compressible: Thrombus - None: Flow - Phasic: Augmentation -Normal: Reflux - None. 6. Great Saphenous Vein: 6.1. Compressibility - Fully compressible: Thrombus - None: Flow - Phasic: Augmentation - Normal: Reflux - None. LEFT: 1. Common Femoral Vein: 1.1. Compressibility - Fully compressible: Thrombus - None: Flow - Phasic: Augmentation -Normal: Reflux - None. 2. Femoral Vein: 2.1. Compressibility - Fully compressible: Thrombus - None: Flow - Phasic: Augmentation -Normal: Reflux - None. 3. Popliteal Vein: 3.1. Compressibility - Fully compressible: Thrombus - None : Flow - Phasic: Augmentation -Normal: Reflux - None. 4. Posterior Tibial Vein: 4.1. Compressibility - Fully compressible: Thrombus - None: Flow - Phasic: Augmentation -Normal: Reflux - None. 5. Peroneal Vein: 5.1. Compressibility - Fully compressible: Thrombus - None: Flow - Phasic: Augmentation -Normal: Reflux - None. 6. Great Saphenous Vein: 6.1. Compressibility - Fully compressible: Thrombus - None: Flow - Phasic: Augmentation - Normal: Reflux - None. OTHER FINDINGS: Right: None significant. Left: None significant. IMPRESSION: Right: No evidence of deep or superficial vein thrombosis of the right lower extremity. Normal valve function noted of the right side. Left: No evidence of deep or superficial vein thrombosis of the left lower extremity. Normal valve function noted of the left side.
[2016-09-08] MEDS: Pantoprazole 40 mg EC Tab PO SCH (13:29)
--- NOTE | 2016-09-08 15:47 | CP.PCM.PN ---
<Zully Apple - Last Filed: 09/08/16 18:51> Subjective - Date & Time of Evaluation Date of Evaluation: 09/08/16 Time of Evaluation: 08:00 - Subjective Subjective: PGY1- Medicine Note- Dr. Motta's Service Patient seen and examined at bedside and is in no acute distress. Patient denies headaches, shortness of breath, chest pain, nausea, vomiting, constipation, diarrhea. Patient admits to low back/ flank pain bilaterally. Patient says he does not see blood in the urine. Patient was explained CT results by Dr. Motta. Objective - Vital Signs/Intake and Output Vital Signs (last 24 hours): Temp Pulse Resp BP Pulse Ox 97.5 F L 62 20 133/79 99 09/08/16 08:00 09/08/16 08:00 09/08/16 08:00 09/08/16 08:00 09/08/16 08:00 Intake and Output: 09/08/16 09/08/16 06:59 18:59 Intake Total 1999 Balance 1999 - Medications Medications: Current Medications Amlodipine Besylate (Norvasc) 5 mg PO HS [facility] Last Admin: 09/07/16 21:29 Dose: 5 mg Gemfibrozil (Lopid) 600 mg PO BID [facility] Last Admin: 09/08/16 11:26 Dose: 600 mg Heparin Sodium (Porcine) (Heparin) 5,000 units SC Q8 [facility] Last Admin: 09/08/16 13:36 Dose: 5,000 units Sodium Chloride (Sodium Chloride 0.9%) 1,000 mls @ 150 mls/hr IV .Q6H40M [facility] Insulin Human Regular (Novolin R) 0 unit SC ACHS [facility] PRN Reason: Protocol Last Admin: 09/08/16 11:42 Dose: 2 unit Losartan Potassium (Cozaar) 100 mg PO QAM [facility] Last Admin: 09/08/16 11:27 Dose: 100 mg Ondansetron HCl (Zofran Inj) 4 mg IVP Q6 PRN PRN Reason: Nausea/Vomiting Oxycodone/Acetaminophen (Percocet 5/325 Mg Tab) 1 tab PO Q6H PRN PRN Reason: Pain, moderate (4-7) Stop: 09/11/16 15:39 Pantoprazole Sodium (Protonix Ec Tab) 40 mg PO DAILY [facility] Last Admin: 09/08/16 13:29 Dose: 40 mg Rosuvastatin Calcium (Crestor) 20 mg PO HS [facility] Last Admin: 09/07/16 21:28 Dose: 20 mg - Labs Labs: 09/08/16 06:18 09/08/16 06:18 - Constitutional Appears: Well, Non-toxic, No Acute Distress - Head Exam Head Exam: ATRAUMATIC, NORMAL INSPECTION, NORMOCEPHALIC - Eye Exam Eye Exam: EOMI, Normal appearance, PERRL - ENT Exam ENT Exam: Mucous Membranes Moist, Normal Exam - Neck Exam Neck Exam: Full ROM, Normal Inspection. absent: Lymphadenopathy - Respiratory Exam Respiratory Exam: Clear to Ausculation Bilateral, NORMAL BREATHING PATTERN. absent: Rhonchi, Wheezes, Stridor - Cardiovascular Exam Cardiovascular Exam: REGULAR RHYTHM, RRR, +S1, +S2. absent: Gallop, Rubs, Murmur - GI/Abdominal Exam GI & Abdominal Exam: Soft, Normal Bowel Sounds. absent: Firm, Guarding, Rigid, Tenderness - Extremities Exam Extremities Exam: Full ROM, Normal Capillary Refill, Normal Inspection. absent : Joint Swelling, Pedal Edema - Back Exam Back Exam: CVA tenderness (L), CVA tenderness (R), NORMAL INSPECTION - Psychiatric Exam Psychiatric exam: Normal Affect, Normal Mood - Skin Skin Exam: Normal Color, Warm Assessment and Plan - Assessment and Plan (Free Text) Assessment: 1.) Acute Pancreatitis - Lipase 397 - Advanced to heart healthy diet - Normal Saline decreased to 150 cc/hr - Zofran IVP PRN for nausea - Denies alcohol use. - Cholesterol: 214; LDL: 123; HDL: 39; Triglycerides: 206 - Amylase: 93 2.) Dizziness - resolved - ECHO: Left ventricle systolic function is normal with ejection fraction of 55-60%. trace to mild tricuspid regurgitation (please see echo for full report) -Carotid dopplers (09/05/16): Right duplex scan does not suggeset hemodynamically significant stenosis of the right extra cranial carotid arteries. Left duplex scan does not suggest hemodynamically significant stenosis of the left extra cranial carotis arteries. Focal calcific plaque in the proximal segment of the left internal carotid artery. 3.) Bilateral Calf Pain - bilateral venous doppler: negative 4.) Constipation - monitor, order dulcolax if needed 5.) Hyperlipidemia - Patient with reported history of triglycerides in the 1000's. - Cholesterol: 214; LDL: 123; HDL: 39; Triglycerides: 206 - Gemfibrozil 600 mg PO BID (home med) - Crestor 20mg PO HS 7.) Diabetes Mellitus - Heart healthy diet - f/u Hgb A1c in the AM - Insulin sliding scale - Accu checks ACHS 8.) Prophylaxis - SCDs - Heparin 5000 U SC Q8H - Protonix 40 mg IVP daily <Abad Motta - Last Filed: 09/09/16 07:51> Objective - Vital Signs/Intake and Output Vital Signs (last 24 hours): Temp Pulse Resp BP Pulse Ox 98.1 F 56 L 20 136/65 99 09/09/16 07:34 09/09/16 07:34 09/09/16 07:34 09/09/16 07:34 09/09/16 07:34 Intake and Output: 09/09/16 09/09/16 06:59 18:59 Intake Total 1440 Balance 1440 - Medications Medications: Current Medications Amlodipine Besylate (Norvasc) 5 mg PO HS [facility] Last Admin: 09/08/16 21:15 Dose: 5 mg Gemfibrozil (Lopid) 600 mg PO BID [facility] Last Admin: 09/08/16 17:24 Dose: 600 mg Heparin Sodium (Porcine) (Heparin) 5,000 units SC Q8 [facility] Last Admin: 09/09/16 05:33 Dose: 5,000 units Sodium Chloride (Sodium Chloride 0.9%) 1,000 mls @ 150 mls/hr IV .Q6H40M [facility] Last Admin: 09/09/16 04:30 Dose: Not Given Insulin Human Regular (Novolin R) 0 unit SC [facility] PRN Reason: Protocol Last Admin: 09/08/16 21:21 Dose: Not Given Losartan Potassium (Cozaar) 100 mg PO QAM [facility] Last Admin: 09/08/16 11:27 Dose: 100 mg Ondansetron HCl (Zofran Inj) 4 mg IVP Q6 PRN PRN Reason: Nausea/Vomiting Oxycodone/Acetaminophen (Percocet 5/325 Mg Tab) 1 tab PO Q6H PRN PRN Reason: Pain, moderate (4-7) Stop: 09/11/16 15:39 Pantoprazole Sodium (Protonix Ec Tab) 40 mg PO DAILY [facility] Last Admin: 09/08/16 13:29 Dose: 40 mg Rosuvastatin Calcium (Crestor) 20 mg PO HS [facility] Last Admin: 09/08/16 21:15 Dose: 20 mg - Labs Labs: 09/09/16 06:23 09/09/16 06:23 Attending/Attestation - Attestation I have personally seen and examined this patient.: Yes I have fully participated in the care of the patient.: Yes I have reviewed all pertinent clinical information, including history, physical exam and plan: Yes Notes (Text): Medical Attending: Patient was seen and examined by me. Agree with the above by resident. At this time the patient reports feeling generally ok. There is blood in the UA , and I had to have a computer translation service explain to the patient and family that likley he was not having a flare up of pancreatitis but that the pain maybe related to the CT findings with reguards to his kidney which shows either cyst or possible renal cell carcinoma. 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 Pending urology and nephrology evaluation. thank you Abad Motta
[2016-09-09] MEDS: Sodium Chloride 0.9% 1,000 ML IV SCH ×5 (01:37→21:25)
[2016-09-09 06:36] LABS: BASO % 0.6 % (0.0-2.0); EOS # 0.4 K/uL (0.0-0.7); EOS % 5.7 % (0.0-4.0); HEMOGLOBIN 12.2 g/dL (12.0-18.0); LYMPH # 2.1 K/uL (1.0-4.3); LYMPH % 27.8 % (20.0-40.0); MEAN CELL VOLUME 88.7 fL (80.0-94.0); MEAN CORPUSCULAR HEMOGLOBIN 30.1 pg (27.0-31.0); MEAN PLATELET VOLUME 8.3 fL (7.2-11.7); MONO # 0.4 K/uL (0.0-0.8); MONO % 5.2 % (0.0-10.0); NEUT # 4.6 K/uL (1.8-7.0); NEUT % 60.7 % (50.0-75.0); RBC 4.05 Mil/uL (4.40-5.90); RED CELL DISTRIBUTION WIDTH 12.9 % (11.5-14.5); WHITE BLOOD COUNT 7.6 K/uL (4.8-10.8)
[2016-09-09 06:44] LABS: ALB/GLOB RATIO 1.3 (1.0-2.1); ALT/SGPT 24 U/L (21-72); AST/SGOT 29 U/L (17-59); BLOOD UREA NITROGEN 11 mg/dL (9-20); GFR AFRICAN-AMERICAN > 60; GFR NON-AFRICAN AMERICAN > 60
[2016-09-09 06:45] LABS: CALCIUM 8.9 mg/dl (8.6-10.4); MAGNESIUM 1.7 mg/dL (1.6-2.3)
[2016-09-09 08:15] LABS: URINE BACTERIA RARE (<OCC); URINE BILIRUBIN NEGATIVE (NEGATIVE); URINE BLOOD 1+ (NEGATIVE); URINE CLARITY Clear (Clear); URINE COLOR Colorless (YELLOW); URINE GLUCOSE (UA) NORMAL (Normal); URINE LEUKOCYTE ESTERASE NEG Leu/uL (Negative); URINE NITRATE NEGATIVE (NEGATIVE); URINE PROTEIN NEGATIVE (NEGATIVE); URINE UROBILINOGEN NORMAL mg/dL (0.2-1.0)
[2016-09-09] MEDS: (Novolin R) Insulin Human Regular 100 units/ml vial SC SCH ×4 (08:15→21:24)
[2016-09-09] MEDS: Pantoprazole 40 mg EC Tab PO SCH (09:10)
[2016-09-09] MEDS: Oxycodone/Acetaminophen 5/325 mg Tab PO PRN (11:33)
--- NOTE | 2016-09-09 21:43 | CP.PCM.PN ---
<Zully Apple - Last Filed: 09/09/16 21:44> Subjective - Date & Time of Evaluation Date of Evaluation: 09/09/16 Time of Evaluation: 08:00 - Subjective Subjective: PGY1 Medicine Note- Dr. Motta's Service Patient seen and examined at bedside and in no acute distress. Patient admits to bilateral flank pain. Patient complains of slight dry cough that started yesterday. Patient admits to constipation for 2 days. Patient denies fevers, chills, chest pain, abdominal pain, nausea, vomiting. Objective - Vital Signs/Intake and Output Vital Signs (last 24 hours): Temp Pulse Resp BP Pulse Ox 97.6 F 58 L 20 119/66 98 09/09/16 15:00 09/09/16 15:00 09/09/16 15:00 09/09/16 15:00 09/09/16 15:00 Intake and Output: 09/09/16 09/10/16 18:59 06:59 Intake Total 3120 Balance 3120 - Medications Medications: Current Medications Amlodipine Besylate (Norvasc) 5 mg PO HS [facility] Last Admin: 09/09/16 21:23 Dose: 5 mg Docusate Sodium (Colace) 100 mg PO TID [facility] Last Admin: 09/09/16 17:15 Dose: 100 mg Gemfibrozil (Lopid) 600 mg PO BID [facility] Last Admin: 09/09/16 17:15 Dose: 600 mg Heparin Sodium (Porcine) (Heparin) 5,000 units SC Q8 [facility] Last Admin: 09/09/16 21:24 Dose: 5,000 units Sodium Chloride (Sodium Chloride 0.9%) 1,000 mls @ 100 mls/hr IV .Q10H [facility] Last Admin: 09/09/16 21:25 Dose: 100 mls/hr Insulin Human Regular (Novolin R) 0 unit SC ACHS [facility] PRN Reason: Protocol Last Admin: 09/09/16 21:24 Dose: Not Given Losartan Potassium (Cozaar) 100 mg PO QAM [facility] Last Admin: 09/09/16 09:10 Dose: 100 mg Ondansetron HCl (Zofran Inj) 4 mg IVP Q6 PRN PRN Reason: Nausea/Vomiting Oxycodone/Acetaminophen (Percocet 5/325 Mg Tab) 1 tab PO Q6H PRN PRN Reason: Pain, moderate (4-7) Stop: 09/11/16 15:39 Last Admin: 09/09/16 11:33 Dose: 1 tab Pantoprazole Sodium (Protonix Ec Tab) 40 mg PO DAILY [facility] Last Admin: 09/09/16 09:10 Dose: 40 mg Rosuvastatin Calcium (Crestor) 20 mg PO HS [facility] Last Admin: 09/09/16 21:23 Dose: 20 mg - Labs Labs: 09/09/16 06:23 09/09/16 06:23 - Constitutional Appears: Well, Non-toxic, No Acute Distress - Head Exam Head Exam: ATRAUMATIC, NORMAL INSPECTION, NORMOCEPHALIC - Eye Exam Eye Exam: EOMI, Normal appearance, PERRL - ENT Exam ENT Exam: Mucous Membranes Moist, Normal Exam, Normal Oropharynx - Neck Exam Neck Exam: Full ROM, Normal Inspection. absent: Lymphadenopathy - Respiratory Exam Respiratory Exam: Clear to Ausculation Bilateral, NORMAL BREATHING PATTERN. absent: Rales, Rhonchi, Wheezes, Respiratory Distress, Stridor - Cardiovascular Exam Cardiovascular Exam: REGULAR RHYTHM, RRR, +S1, +S2. absent: Gallop, Rubs, Murmur - GI/Abdominal Exam GI & Abdominal Exam: Soft, Normal Bowel Sounds. absent: Firm, Guarding, Tenderness - Extremities Exam Extremities Exam: Full ROM, Normal Capillary Refill, Normal Inspection. absent : Joint Swelling, Pedal Edema - Back Exam Back Exam: CVA tenderness (L), CVA tenderness (R), NORMAL INSPECTION - Neurological Exam Neurological Exam: Alert, Awake, Oriented x3 - Psychiatric Exam Psychiatric exam: Normal Affect, Normal Mood - Skin Skin Exam: Intact, Normal Color, Warm Assessment and Plan - Assessment and Plan (Free Text) Assessment: 1.) Renal mass - R/O acute pancreatitis - Lipase 397 - Advanced to heart healthy diet - Normal Saline decreased to 100 cc/hr - Zofran IVP PRN for nausea - Denies alcohol use. - Cholesterol: 214; LDL: 123; HDL: 39; Triglycerides: 206 - Amylase: 93 -CT: Enhancing 4.7 cm left upper pole renal mass suspicious for renal cell neoplasm. Multiple bilateral renal cysts. -Dr. Al consulted, help appreciated. 2.) Dizziness - resolved - ECHO: Left ventricle systolic function is normal with ejection fraction of 55-60%. trace to mild tricuspid regurgitation (please see echo for full report) -Carotid dopplers (09/05/16): Right duplex scan does not suggeset hemodynamically significant stenosis of the right extra cranial carotid arteries. Left duplex scan does not suggest hemodynamically significant stenosis of the left extra cranial carotis arteries. Focal calcific plaque in the proximal segment of the left internal carotid artery. 3.) Bilateral Calf Pain - bilateral venous doppler: negative 4.) Constipation - Colace ordered, monitor 5.) Hyperlipidemia - Patient with reported history of triglycerides in the 1000's. - Cholesterol: 214; LDL: 123; HDL: 39; Triglycerides: 206 - Gemfibrozil 600 mg PO BID (home med) - Crestor 20mg PO HS 7.) Diabetes Mellitus - Heart healthy diet - f/u Hgb A1c in the AM - Insulin sliding scale - Accu checks ACHS 8.) Prophylaxis - SCDs - Heparin 5000 U SC Q8H - Protonix 40 mg IVP daily <Abad Motta - Last Filed: 09/10/16 07:56> Objective - Vital Signs/Intake and Output Vital Signs (last 24 hours): Temp Pulse Resp BP Pulse Ox 98.1 F 58 L 20 117/61 99 09/10/16 00:00 09/10/16 00:00 09/10/16 00:00 09/10/16 00:00 09/10/16 00:00 Intake and Output: 09/10/16 09/10/16 06:59 18:59 Intake Total 1040 Balance 1040 - Medications Medications: Current Medications Amlodipine Besylate (Norvasc) 5 mg PO HS [facility] Last Admin: 09/09/16 21:23 Dose: 5 mg Docusate Sodium (Colace) 100 mg PO TID [facility] Last Admin: 09/09/16 17:15 Dose: 100 mg Gemfibrozil (Lopid) 600 mg PO BID [facility] Last Admin: 09/09/16 17:15 Dose: 600 mg Heparin Sodium (Porcine) (Heparin) 5,000 units SC Q8 [facility] Last Admin: 09/10/16 05:29 Dose: 5,000 units Sodium Chloride (Sodium Chloride 0.9%) 1,000 mls @ 100 mls/hr IV .Q10H [facility] Last Admin: 09/10/16 06:09 Dose: 100 mls/hr Insulin Human Regular (Novolin R) 0 unit SC ACHS [facility] PRN Reason: Protocol Last Admin: 09/09/16 21:24 Dose: Not Given Losartan Potassium (Cozaar) 100 mg PO QAM [facility] Last Admin: 09/09/16 09:10 Dose: 100 mg Ondansetron HCl (Zofran Inj) 4 mg IVP Q6 PRN PRN Reason: Nausea/Vomiting Oxycodone/Acetaminophen (Percocet 5/325 Mg Tab) 1 tab PO Q6H PRN PRN Reason: Pain, moderate (4-7) Stop: 09/11/16 15:39 Last Admin: 09/09/16 11:33 Dose: 1 tab Pantoprazole Sodium (Protonix Ec Tab) 40 mg PO DAILY [facility] Last Admin: 09/09/16 09:10 Dose: 40 mg Rosuvastatin Calcium (Crestor) 20 mg PO HS [facility] Last Admin: 09/09/16 21:23 Dose: 20 mg - Labs Labs: 09/10/16 06:19 09/10/16 06:19 Attending/Attestation - Attestation I have personally seen and examined this patient.: Yes I have fully participated in the care of the patient.: Yes I have reviewed all pertinent clinical information, including history, physical exam and plan: Yes Notes (Text): Medical Attending: Patient was seen and examined by me. Agree with the above note by the resident. The patient was not in any acute distress when we saw him Pending further advise from urology and nephrology at this time
[2016-09-10] MEDS: Sodium Chloride 0.9% 1,000 ML IV SCH ×4 (06:09→21:29)
[2016-09-10 06:47] LABS: BASO % 0.6 % (0.0-2.0); EOS # 0.4 K/uL (0.0-0.7); EOS % 5.6 % (0.0-4.0); LYMPH % 25.8 % (20.0-40.0); MEAN CELL VOLUME 88.8 fL (80.0-94.0); MEAN CORPUSCULAR HEMOGLOBIN 30.5 pg (27.0-31.0); MEAN CORPUSCULAR HGB CONC 34.4 g/dL (33.0-37.0); MEAN PLATELET VOLUME 8.4 fL (7.2-11.7); MONO # 0.4 K/uL (0.0-0.8); MONO % 4.6 % (0.0-10.0); NEUT # 4.9 K/uL (1.8-7.0); NEUT % 63.4 % (50.0-75.0); NRBC % 0.1 % (0.0-2.0); RBC 3.95 Mil/uL (4.40-5.90); RED CELL DISTRIBUTION WIDTH 12.9 % (11.5-14.5); WHITE BLOOD COUNT 7.7 K/uL (4.8-10.8)
[2016-09-10 06:49] LABS: GFR AFRICAN-AMERICAN > 60; GFR NON-AFRICAN AMERICAN > 60
[2016-09-10 06:50] LABS: ALB/GLOB RATIO 1.3 (1.0-2.1); ALT/SGPT 46 U/L (21-72); AST/SGOT 50 U/L (17-59); BLOOD UREA NITROGEN 11 mg/dL (9-20); CALCIUM 9.2 mg/dl (8.6-10.4); MAGNESIUM 1.7 mg/dL (1.6-2.3)
[2016-09-10] MEDS: (Novolin R) Insulin Human Regular 100 units/ml vial SC SCH ×4 (07:59→21:24)
[2016-09-10] MEDS: Pantoprazole 40 mg EC Tab PO SCH ×2 (08:57→12:19)
--- NOTE | 2016-09-10 13:03 | CP.PCM.PN ---
<Zully Apple - Last Filed: 09/10/16 16:38> Subjective - Date & Time of Evaluation Date of Evaluation: 09/10/16 Time of Evaluation: 08:00 - Subjective Subjective: PGY-1 Medicine Note, Dr. Motta's Service Patient seen and examined at bedside. He is feeling okay today, but still has bilateral flank pain. Dr. Motta explained to patient that the CT was suspicious for renal cancer and that patient will probably need to follow up at a larger hospital. 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 Objective - Vital Signs/Intake and Output Vital Signs (last 24 hours): Temp Pulse Resp BP Pulse Ox 98.5 F 65 20 116/69 98 09/10/16 08:00 09/10/16 08:00 09/10/16 08:00 09/10/16 08:00 09/10/16 08:00 Intake and Output: 09/10/16 09/10/16 06:59 18:59 Intake Total 1040 Balance 1040 - Medications Medications: Current Medications Amlodipine Besylate (Norvasc) 5 mg PO HS [facility] Last Admin: 09/09/16 21:23 Dose: 5 mg Docusate Sodium (Colace) 100 mg PO TID [facility] Last Admin: 09/10/16 12:18 Dose: Not Given Gemfibrozil (Lopid) 600 mg PO BID [facility] Last Admin: 09/10/16 12:19 Dose: Not Given Heparin Sodium (Porcine) (Heparin) 5,000 units SC Q8 [facility] Last Admin: 09/10/16 05:29 Dose: 5,000 units Sodium Chloride (Sodium Chloride 0.9%) 1,000 mls @ 100 mls/hr IV .Q10H [facility] Last Admin: 09/10/16 12:20 Dose: Not Given Insulin Human Regular (Novolin R) 0 unit SC ACHS [facility] PRN Reason: Protocol Last Admin: 09/10/16 12:19 Dose: Not Given Losartan Potassium (Cozaar) 100 mg PO QAM [facility] Last Admin: 09/10/16 12:18 Dose: Not Given Ondansetron HCl (Zofran Inj) 4 mg IVP Q6 PRN PRN Reason: Nausea/Vomiting Oxycodone/Acetaminophen (Percocet 5/325 Mg Tab) 1 tab PO Q6H PRN PRN Reason: Pain, moderate (4-7) Stop: 09/11/16 15:39 Last Admin: 09/09/16 11:33 Dose: 1 tab Pantoprazole Sodium (Protonix Ec Tab) 40 mg PO DAILY [facility] Last Admin: 09/10/16 12:19 Dose: Not Given Rosuvastatin Calcium (Crestor) 20 mg PO HS [facility] Last Admin: 09/09/16 21:23 Dose: 20 mg - Labs Labs: 09/10/16 06:19 09/10/16 06:19 - Constitutional Appears: Well, Non-toxic, No Acute Distress - Head Exam Head Exam: ATRAUMATIC, NORMAL INSPECTION, NORMOCEPHALIC - Eye Exam Eye Exam: EOMI, Normal appearance, PERRL - ENT Exam ENT Exam: Mucous Membranes Moist, Normal Exam - Neck Exam Neck Exam: Full ROM, Normal Inspection. absent: Lymphadenopathy - Respiratory Exam Respiratory Exam: Clear to Ausculation Bilateral, NORMAL BREATHING PATTERN. absent: Rales, Rhonchi, Wheezes, Respiratory Distress, Stridor - Cardiovascular Exam Cardiovascular Exam: REGULAR RHYTHM, +S1, +S2. absent: Murmur - GI/Abdominal Exam GI & Abdominal Exam: Soft, Normal Bowel Sounds. absent: Distended, Firm, Guarding, Tenderness - Extremities Exam Extremities Exam: Full ROM, Normal Capillary Refill, Normal Inspection. absent : Joint Swelling, Pedal Edema - Back Exam Back Exam: CVA tenderness (L), CVA tenderness (R), NORMAL INSPECTION. absent: rash noted - Neurological Exam Neurological Exam: Alert, Awake, Oriented x3 - Psychiatric Exam Psychiatric exam: Normal Affect, Normal Mood - Skin Skin Exam: Intact, Normal Color, Warm Assessment and Plan - Assessment and Plan (Free Text) Assessment: 1.) Renal mass - R/O acute pancreatitis - Lipase 397 - Advanced to heart healthy diet - Normal Saline decreased to 100 cc/hr - Zofran IVP PRN for nausea - Denies alcohol use. - Cholesterol: 214; LDL: 123; HDL: 39; Triglycerides: 206 - Amylase: 93 -CT: Enhancing 4.7 cm left upper pole renal mass suspicious for renal cell neoplasm. Multiple bilateral renal cysts. -Dr. Al (urology) consulted, help appreciated. -Dr. Mejía (nephrology) consulted, help appreciated 2.) Dizziness - resolved - ECHO: Left ventricle systolic function is normal with ejection fraction of 55-60%. trace to mild tricuspid regurgitation (please see echo for full report) -Carotid dopplers (09/05/16): Right duplex scan does not suggeset hemodynamically significant stenosis of the right extra cranial carotid arteries. Left duplex scan does not suggest hemodynamically significant stenosis of the left extra cranial carotis arteries. Focal calcific plaque in the proximal segment of the left internal carotid artery. 3.) Bilateral Calf Pain - bilateral venous doppler: negative 4.) Constipation - Colace ordered -Miralax ordered -monitor 5.) Hyperlipidemia - Patient with reported history of triglycerides in the 999's. - Cholesterol: 214; LDL: 123; HDL: 39; Triglycerides: 206 - Gemfibrozil 600 mg PO BID (home med) - Crestor 20mg PO HS 7.) Diabetes Mellitus - Heart healthy diet - f/u Hgb A1c in the AM - Insulin sliding scale - Accu checks ACHS 8.) Prophylaxis - SCDs - Heparin 5000 U SC Q8H - Protonix 40 mg IVP daily <Abad Motta H - Last Filed: 09/10/16 18:00> Objective - Vital Signs/Intake and Output Vital Signs (last 24 hours): Temp Pulse Resp BP Pulse Ox 98.1 F 58 L 20 126/72 100 09/10/16 15:00 09/10/16 15:00 09/10/16 15:00 09/10/16 15:00 09/10/16 15:00 Intake and Output: 09/10/16 09/10/16 06:59 18:59 Intake Total 1040 400 Balance 1040 400 - Medications Medications: Current Medications Amlodipine Besylate (Norvasc) 5 mg PO HS [facility] Last Admin: 09/09/16 21:23 Dose: 5 mg Docusate Sodium (Colace) 100 mg PO TID [facility] Last Admin: 09/10/16 17:58 Dose: 100 mg Gemfibrozil (Lopid) 600 mg PO BID [facility] Last Admin: 09/10/16 17:58 Dose: 600 mg Heparin Sodium (Porcine) (Heparin) 5,000 units SC Q8 [facility] Last Admin: 09/10/16 14:16 Dose: 5,000 units Sodium Chloride (Sodium Chloride 0.9%) 1,000 mls @ 100 mls/hr IV .Q10H [facility] Last Admin: 09/10/16 12:20 Dose: Not Given Insulin Human Regular (Novolin R) 0 unit SC ACHS [facility] PRN Reason: Protocol Last Admin: 09/10/16 17:58 Dose: Not Given Losartan Potassium (Cozaar) 100 mg PO QAM [facility] Last Admin: 09/10/16 12:18 Dose: Not Given Ondansetron HCl (Zofran Inj) 4 mg IVP Q6 PRN PRN Reason: Nausea/Vomiting Oxycodone/Acetaminophen (Percocet 5/325 Mg Tab) 1 tab PO Q6H PRN PRN Reason: Pain, moderate (4-7) Stop: 09/11/16 15:39 Last Admin: 09/09/16 11:33 Dose: 1 tab Pantoprazole Sodium (Protonix Ec Tab) 40 mg PO DAILY [facility] Last Admin: 09/10/16 12:19 Dose: Not Given Polyethylene Glycol (Miralax) 17 gm PO DAILY [facility] Last Admin: 09/10/16 17:58 Dose: 17 gm Rosuvastatin Calcium (Crestor) 20 mg PO HS [facility] Last Admin: 09/09/16 21:23 Dose: 20 mg - Labs Labs: 09/10/16 06:19 09/10/16 06:19 Attending/Attestation - Attestation I have personally seen and examined this patient.: Yes I have fully participated in the care of the patient.: Yes I have reviewed all pertinent clinical information, including history, physical exam and plan: Yes Notes (Text): 09/10/16 17:59 Medical attending: Patient was seen and examined by me, agrees the above note by medical policy specialist. At this time were pending neurology and nephrology evaluation. We used a medical assistant float to help the patient and his family understand the situation. He might be that he'll have to eventually follow-up at a much larger Medical Center. At this time the patient is quite stable his blood pressure and heart rate are stable, he is tolerating a regular diet, he is ambulating and going to the bathroom okay
[2016-09-10] MEDS: POLYETHYLENE GLYCOL 3350 17 GM/Dose PACKET PO SCH (17:58)
[2016-09-11] MEDS: Sodium Chloride 0.9% 1,000 ML IV SCH ×3 (01:43→21:37)
[2016-09-11 06:22] LABS: BASO # 0.1 K/uL (0.0-0.2); BASO % 0.6 % (0.0-2.0); EOS # 0.5 K/uL (0.0-0.7); EOS % 5.7 % (0.0-4.0); LYMPH # 2.3 K/uL (1.0-4.3); LYMPH % 26.9 % (20.0-40.0); MEAN CORPUSCULAR HEMOGLOBIN 30.2 pg (27.0-31.0); MEAN CORPUSCULAR HGB CONC 33.9 g/dL (33.0-37.0); MEAN PLATELET VOLUME 8.5 fL (7.2-11.7); MONO # 0.5 K/uL (0.0-0.8); MONO % 5.7 % (0.0-10.0); NEUT # 5.3 K/uL (1.8-7.0); NEUT % 61.1 % (50.0-75.0); RBC 3.97 Mil/uL (4.40-5.90); WHITE BLOOD COUNT 8.6 K/uL (4.8-10.8)
[2016-09-11 07:19] LABS: ALB/GLOB RATIO 1.2 (1.0-2.1); AST/SGOT 55 U/L (17-59); BLOOD UREA NITROGEN 15 mg/dL (9-20); GFR AFRICAN-AMERICAN > 60; GFR NON-AFRICAN AMERICAN > 60
[2016-09-11 07:20] LABS: ALT/SGPT 64 U/L (21-72); CALCIUM 9.2 mg/dl (8.6-10.4); MAGNESIUM 1.9 mg/dL (1.6-2.3)
[2016-09-11] MEDS: (Novolin R) Insulin Human Regular 100 units/ml vial SC SCH ×2 (07:39→12:51)
[2016-09-11] MEDS: Pantoprazole 40 mg EC Tab PO SCH ×2 (08:29→12:51)
[2016-09-11] MEDS: Oxycodone/Acetaminophen 5/325 mg Tab PO PRN (08:30)
[2016-09-11] MEDS: POLYETHYLENE GLYCOL 3350 17 GM/Dose PACKET PO SCH (10:52)
[2016-09-11] MEDS ORDERED: Morphine 4 MG/ML VIAL IVP PRN (12:43)
--- NOTE | 2016-09-11 14:14 | CP.PCM.PN ---
<Zully Apple - Last Filed: 09/11/16 17:30> Subjective - Date & Time of Evaluation Date of Evaluation: 09/11/16 Time of Evaluation: 07:30 - Subjective Subjective: PGY1- Medicine Note - Dr. Motta's Service Patient seen and examined at bedside. Patient complaining of a lot of bilateral CVA pain. Patient also has had no bowel movement. Patient denies dizziness, chest pain, shortness of breath, nausea, vomiting. Patient was able to eat some breakfast. Objective - Vital Signs/Intake and Output Vital Signs (last 24 hours): Temp Pulse Resp BP Pulse Ox 97.6 F 54 L 20 107/66 99 09/11/16 08:42 09/11/16 08:42 09/11/16 08:42 09/11/16 08:42 09/11/16 08:42 Intake and Output: 09/11/16 09/11/16 06:59 18:59 Intake Total 800 400 Balance 800 400 - Medications Medications: Current Medications Amlodipine Besylate (Norvasc) 5 mg PO HS [facility] Last Admin: 09/11/16 08:29 Dose: Not Given Docusate Sodium (Colace) 100 mg PO TID [facility] Last Admin: 09/11/16 13:21 Dose: 100 mg Gemfibrozil (Lopid) 600 mg PO BID [facility] Last Admin: 09/11/16 10:51 Dose: Not Given Heparin Sodium (Porcine) (Heparin) 5,000 units SC Q8 [facility] Last Admin: 09/11/16 13:21 Dose: 5,000 units Sodium Chloride (Sodium Chloride 0.9%) 1,000 mls @ 100 mls/hr IV .Q10H [facility] Last Admin: 09/11/16 01:43 Dose: 100 mls/hr Insulin Human Regular (Novolin R) 0 unit SC ACHS [facility] PRN Reason: Protocol Last Admin: 09/11/16 12:51 Dose: Not Given Losartan Potassium (Cozaar) 50 mg PO QAM [facility] Morphine Sulfate (Morphine) 3 mg IVP Q3 PRN PRN Reason: FOR SEVERE PAIN 8-10 Last Admin: 09/11/16 13:20 Dose: 3 mg Ondansetron HCl (Zofran Inj) 4 mg IVP Q6 PRN PRN Reason: Nausea/Vomiting Oxycodone/Acetaminophen (Percocet 5/325 Mg Tab) 1 tab PO Q6H PRN PRN Reason: Pain, moderate (4-7) Stop: 09/11/16 15:39 Last Admin: 09/11/16 08:30 Dose: 1 tab Pantoprazole Sodium (Protonix Ec Tab) 40 mg PO DAILY [facility] Last Admin: 09/11/16 12:51 Dose: Not Given Polyethylene Glycol (Miralax) 17 gm PO DAILY [facility] Last Admin: 09/11/16 10:52 Dose: Not Given Rosuvastatin Calcium (Crestor) 20 mg PO HS [facility] Last Admin: 09/10/16 21:23 Dose: 20 mg - Labs Labs: 09/11/16 06:05 09/11/16 06:05 - Constitutional Appears: Well, Non-toxic, No Acute Distress - Head Exam Head Exam: ATRAUMATIC, NORMAL INSPECTION, NORMOCEPHALIC - Eye Exam Eye Exam: EOMI, Normal appearance, PERRL - ENT Exam ENT Exam: Mucous Membranes Moist, Normal Exam - Neck Exam Neck Exam: Full ROM, Normal Inspection. absent: Lymphadenopathy - Respiratory Exam Respiratory Exam: Clear to Ausculation Bilateral, NORMAL BREATHING PATTERN. absent: Rales, Rhonchi, Wheezes, Respiratory Distress, Stridor - Cardiovascular Exam Cardiovascular Exam: Gallop, REGULAR RHYTHM, RRR, +S1, +S2. absent: Rubs, Murmur - GI/Abdominal Exam GI & Abdominal Exam: Soft, Normal Bowel Sounds. absent: Distended, Firm, Guarding, Rigid, Tenderness - Extremities Exam Extremities Exam: Full ROM, Normal Capillary Refill, Normal Inspection. absent : Joint Swelling, Pedal Edema - Back Exam Back Exam: CVA tenderness (L), CVA tenderness (R), NORMAL INSPECTION - Neurological Exam Neurological Exam: Alert, Awake, Oriented x3 - Psychiatric Exam Psychiatric exam: Normal Affect, Normal Mood - Skin Skin Exam: Normal Color, Warm Assessment and Plan - Assessment and Plan (Free Text) Assessment: 1.) Renal mass - R/O acute pancreatitis - Lipase 397 - Advanced to heart healthy diet - Normal Saline decreased to 100 cc/hr - Zofran IVP PRN for nausea - Denies alcohol use. - Cholesterol: 214; LDL: 123; HDL: 39; Triglycerides: 206 - Amylase: 93 -CT: Enhancing 4.7 cm left upper pole renal mass suspicious for renal cell neoplasm. Multiple bilateral renal cysts. -Dr. Al (urology) consulted, help appreciated. -Dr. Mejía (nephrology) consulted, help appreciated. Patient will need to go to larger medical center for more follow up. 2.) Dizziness - resolved - ECHO: Left ventricle systolic function is normal with ejection fraction of 55-60%. trace to mild tricuspid regurgitation (please see echo for full report) -Carotid dopplers (09/05/16): Right duplex scan does not suggeset hemodynamically significant stenosis of the right extra cranial carotid arteries. Left duplex scan does not suggest hemodynamically significant stenosis of the left extra cranial carotis arteries. Focal calcific plaque in the proximal segment of the left internal carotid artery. 3.) Constipation - Colace ordered -Dulcolax 5mg ordered -monitor 4.) Hyperlipidemia - Patient with reported history of triglycerides in the . - Cholesterol: 214; LDL: 123; HDL: 39; Triglycerides: 206 - Gemfibrozil 600 mg PO BID (home med) - Crestor 20mg PO HS 5.) Pre Diabetes Mellitus - Heart healthy diet - Hgb A1C - 5.7 6.) Bilateral Calf Pain -resolved - bilateral venous doppler: negative 7.) Prophylaxis - SCDs - Heparin 5000 U SC Q8H - Protonix 40 mg IVP daily <Abad Motta - Last Filed: 09/12/16 09:14> Objective - Vital Signs/Intake and Output Vital Signs (last 24 hours): Temp Pulse Resp BP Pulse Ox 97.7 F 56 L 20 129/73 97 09/12/16 07:36 09/12/16 07:36 09/12/16 07:36 09/12/16 07:36 09/12/16 07:36 Intake and Output: 09/12/16 09/12/16 06:59 18:59 Intake Total 1999 Balance 1999 - Medications Medications: Current Medications Amlodipine Besylate (Norvasc) 5 mg PO HS [facility] Last Admin: 09/11/16 21:37 Dose: 5 mg Docusate Sodium (Colace) 100 mg PO TID [facility] Last Admin: 09/11/16 18:16 Dose: 100 mg Gemfibrozil (Lopid) 600 mg PO BID [facility] Last Admin: 09/11/16 18:16 Dose: 600 mg Heparin Sodium (Porcine) (Heparin) 5,000 units SC Q8 [facility] Last Admin: 09/12/16 05:35 Dose: 5,000 units Sodium Chloride (Sodium Chloride 0.9%) 1,000 mls @ 100 mls/hr IV .Q10H [facility] Last Admin: 09/12/16 05:51 Dose: 100 mls/hr Losartan Potassium (Cozaar) 50 mg PO QAM [facility] Morphine Sulfate (Morphine) 3 mg IVP Q3 PRN PRN Reason: FOR SEVERE PAIN 8-10 Last Admin: 09/11/16 13:20 Dose: 3 mg Ondansetron HCl (Zofran Inj) 4 mg IVP Q6 PRN PRN Reason: Nausea/Vomiting Oxycodone/Acetaminophen (Percocet 5/325 Mg Tab) 1 tab PO Q6H PRN PRN Reason: Pain, Mild (1-3) Stop: 09/15/16 08:06 Last Admin: 09/12/16 08:14 Dose: 1 tab Pantoprazole Sodium (Protonix Ec Tab) 40 mg PO DAILY [facility] Last Admin: 09/11/16 12:51 Dose: Not Given Polyethylene Glycol (Miralax) 17 gm PO DAILY [facility] Last Admin: 09/11/16 10:52 Dose: Not Given Rosuvastatin Calcium (Crestor) 20 mg PO HS [facility] Last Admin: 09/11/16 21:37 Dose: 20 mg - Labs Labs: 09/12/16 06:20 09/12/16 06:20 Attending/Attestation - Attestation I have personally seen and examined this patient.: Yes I have fully participated in the care of the patient.: Yes I have reviewed all pertinent clinical information, including history, physical exam and plan: Yes Notes (Text): Medical attending: Patient was seen and examined by me, agree with the above note by manager medical writing. Again we had a very long an emotional discussion with the patient's family members. This time there other family members were helping translate so we did not have to use the computer translation service today. As pointed out before in the previous documentation we explained to the family and the patient that were concerned that he might very well likely have a renal cell carcinoma. At this time he is stable and and I was very clear if the patient that we would have difficulty trying to address renal cell carcinoma that he has he was a very difficult long conversation. However I reiterated to the patient as well as his family members that there is not much were able to do for him here [facility]. Furthermore I explained to the patient as well as the patient's family members that date [facility] here at [facility] would not be able to take care of what he needs. So I again suggested to the patient that were not able to do much meaningful things for him at the [place] very well likely need to go to a much larger medical facility once he leaves from here. Thank you very much, Abad Motta
[2016-09-11 18:48] LABS: URINE BILIRUBIN NEGATIVE (NEGATIVE); URINE BLOOD 2+ (NEGATIVE); URINE CLARITY Clear (Clear); URINE COLOR Colorless (YELLOW); URINE GLUCOSE (UA) NORMAL (Normal); URINE LEUKOCYTE ESTERASE NEG Leu/uL (Negative); URINE NITRATE NEGATIVE (NEGATIVE); URINE PROTEIN NEGATIVE (NEGATIVE); URINE UROBILINOGEN NORMAL mg/dL (0.2-1.0)
--- NOTE | 2016-09-11 21:24 | CP.PCM.CON ---
History of Present Illness - History of Present Illness History of Present Illness: Nephrology consultation: 66 yo M w/ pmh of htn, dm (since ~10 yrs) and hyperlipidemia, admitted for acute pancreatitis after presenting with abdomen and back pain; nephrology service being consulted for L renal mass; Patient reports being in his usual state of health until arriving in this country just under 3 months ago; he has since then been feeling tired and reports losing ~25 lbs; he denies any fevers or night sweats but does report some chills lately; patient also reports feeling dizzy with sensation of head spinning lately and reports having passed out at work on day of presentation; Patient denies any dysuria or gross hematuria but does report delay in urinary stream; previously reported 1 day history of vomiting associated with abd pain; Review of Systems - Constitutional Constitutional: Chills, Fatigue, Weight Loss - EENT Eyes: absent: Change in Vision Nose/Mouth/Throat: Nasal Discharge - Cardiovascular Cardiovascular: Slow Heart Rate. absent: Palpitations - Respiratory Respiratory: absent: Dyspnea on Exertion - Gastrointestinal Gastrointestinal: As Per HPI, Constipation - Genitourinary Genitourinary: As Per HPI - Musculoskeletal Additional comments: bilateral knee pain, R calf pain, L arm pain; - Integumentary Integumentary: absent: Pruritus, Rash - Neurological Neurological: Dizziness Additional comments: Numbness in fingers; - Psychiatric Psychiatric: absent: Anxiety, Depression Past Patient History - Past Medical History & Family History Past Medical History?: Yes Pertinent Family History: Mother - DM; - Past Social History Smoking Status: Never Smoked - CARDIAC Hx Hypercholesterolemia: Yes Hx Hypertension: Yes - ENDOCRINE/METABOLIC Hx Diabetes Mellitus Type 2: Yes - MUSCULOSKELETAL/RHEUMATOLOGICAL Hx Falls: No - PSYCHIATRIC Hx Substance Use: No - SURGICAL HISTORY Hx Appendectomy: Yes - ANESTHESIA Hx Anesthesia: Yes Hx Anesthesia Reactions: No Hx Malignant Hyperthermia: No Meds Allergies/Adverse Reactions: Allergies Allergy/AdvReac Type Severity Reaction Status Date / Time No Known Allergies Allergy Verified 09/05/16 12:38 - Medications Medications: Current Medications Amlodipine Besylate (Norvasc) 5 mg PO HS [facility] Last Admin: 09/11/16 08:29 Dose: Not Given Docusate Sodium (Colace) 100 mg PO TID [facility] Last Admin: 09/11/16 18:16 Dose: 100 mg Gemfibrozil (Lopid) 600 mg PO BID [facility] Last Admin: 09/11/16 18:16 Dose: 600 mg Heparin Sodium (Porcine) (Heparin) 5,000 units SC Q8 [facility] Last Admin: 09/11/16 13:21 Dose: 5,000 units Sodium Chloride (Sodium Chloride 0.9%) 1,000 mls @ 100 mls/hr IV .Q10H [facility] Last Admin: 09/11/16 01:43 Dose: 100 mls/hr Losartan Potassium (Cozaar) 50 mg PO QAM [facility] Morphine Sulfate (Morphine) 3 mg IVP Q3 PRN PRN Reason: FOR SEVERE PAIN 8-10 Last Admin: 09/11/16 13:20 Dose: 3 mg Ondansetron HCl (Zofran Inj) 4 mg IVP Q6 PRN PRN Reason: Nausea/Vomiting Pantoprazole Sodium (Protonix Ec Tab) 40 mg PO DAILY [facility] Last Admin: 09/11/16 12:51 Dose: Not Given Polyethylene Glycol (Miralax) 17 gm PO DAILY [facility] Last Admin: 09/11/16 10:52 Dose: Not Given Rosuvastatin Calcium (Crestor) 20 mg PO HS [facility] Last Admin: 09/10/16 21:23 Dose: 20 mg Physical Exam - Constitutional Appears: Well, No Acute Distress - Head Exam Head Exam: NORMAL INSPECTION, NORMOCEPHALIC - Eye Exam Eye Exam: Normal appearance. absent: Scleral icterus - ENT Exam ENT Exam: Mucous Membranes Moist - Neck Exam Neck exam: Negative for: Lymphadenopathy, Thyromegaly - Respiratory Exam Respiratory Exam: Clear to Auscultation Bilateral, NORMAL BREATHING PATTERN. absent: Rhonchi, Wheezes, Respiratory Distress - Cardiovascular Exam Cardiovascular Exam: REGULAR RHYTHM Additional comments: Distant heart sounds; - GI/Abdominal Exam GI & Abdominal Exam: Soft. absent: Distended Additional comments: Bilateral upper quadrant and epigastric tenderness; - Exam Exam: absent: Bladder Distension - Extremities Exam Extremities exam: Positive for: normal capillary refill, pedal pulses present - Back Exam Additional comments: Bilateral CVA tenderness, R > L - Neurological Exam Neurological exam: Altered Additional comments: 5/5 bilateral upper ext motor; - Psychiatric Exam Psychiatric exam: Normal Affect, Normal Mood - Skin Skin Exam: Normal Color, Warm Results - Vital Signs Recent Vital Signs: Last Vital Signs Temp 97.8 F 09/11/16 15:00 Pulse 49 L 09/11/16 15:00 Resp 20 09/11/16 15:00 BP 113/62 09/11/16 15:00 Pulse Ox 98 09/11/16 15:00 - Labs Result Diagrams: 09/11/16 06:05 09/11/16 06:05 Labs: Laboratory Results - last 24 hr 09/10/16 09/11/16 09/11/16 21:16 06:05 06:05 WBC 8.6 RBC 3.97 L Hgb 12.0 Hct 35.3 MCV 89.0 MCH 30.2 MCHC 33.9 RDW 13.0 Plt Count 343 MPV 8.5 Neut % (Auto) 61.1 Lymph % (Auto) 26.9 Dare % (Auto) 5.7 Eos % (Auto) 5.7 H Baso % (Auto) 0.6 Neut # 5.3 Lymph # 2.3 Dare # 0.5 Eos # 0.5 Baso # 0.1 Sodium 142 Potassium 4.3 Chloride 107 Carbon Dioxide 25 Anion Gap 14 BUN 15 Creatinine 0.9 Est GFR ( Amer) > 60 Est GFR (Non-Af Amer) > 60 POC Glucose (mg/dL) 120 H Random Glucose 105 Calcium 9.2 Phosphorus 4.2 Magnesium 1.9 Total Bilirubin 0.5 AST 55 ALT 64 Alkaline Phosphatase 45 Total Protein 7.2 Albumin 4.0 Globulin 3.3 Albumin/Globulin Ratio 1.2 Urine Color Urine Clarity Urine pH Ur Specific [place] Urine Protein Urine Glucose (UA) Urine Ketones Urine Blood Urine Nitrate Urine Bilirubin Urine Urobilinogen Ur Leukocyte Esterase Urine RBC (Auto) 09/11/16 09/11/16 09/11/16 07:20 11:14 16:36 WBC RBC Hgb Hct MCV MCH MCHC RDW Plt Count MPV Neut % (Auto) Lymph % (Auto) Dare % (Auto) Eos % (Auto) Baso % (Auto) Neut # Lymph # Dare # Eos # Baso # Sodium Potassium Chloride Carbon Dioxide Anion Gap BUN Creatinine Est GFR ( Amer) Est GFR (Non-Af Amer) POC Glucose (mg/dL) 116 H 147 H 97 Random Glucose Calcium Phosphorus Magnesium Total Bilirubin AST ALT Alkaline Phosphatase Total Protein Albumin Globulin Albumin/Globulin Ratio Urine Color Urine Clarity Urine pH Ur Specific [place] Urine Protein Urine Glucose (UA) Urine Ketones Urine Blood Urine Nitrate Urine Bilirubin Urine Urobilinogen Ur Leukocyte Esterase Urine RBC (Auto) 09/11/16 18:35 WBC RBC Hgb Hct MCV MCH MCHC RDW Plt Count MPV Neut % (Auto) Lymph % (Auto) Dare % (Auto) Eos % (Auto) Baso % (Auto) Neut # Lymph # Dare # Eos # Baso # Sodium Potassium Chloride Carbon Dioxide Anion Gap BUN Creatinine Est GFR ( Amer) Est GFR (Non-Af Amer) POC Glucose (mg/dL) Random Glucose Calcium Phosphorus Magnesium Total Bilirubin AST ALT Alkaline Phosphatase Total Protein Albumin Globulin Albumin/Globulin Ratio Urine Color Colorless Urine Clarity Clear Urine pH 6.0 Ur Specific [place] 1.005 Urine Protein Negative Urine Glucose (UA) Normal Urine Ketones Negative Urine Blood 2+ H Urine Nitrate Negative Urine Bilirubin Negative Urine Urobilinogen Normal Ur Leukocyte Esterase Neg Urine RBC (Auto) < 1 - Imaging and Cardiology CT scan - abdomen Status: Image reviewed by me Additional comment: Large enhancing L kidney mass; multiple bilateral cystic lesions; Assessment & Plan (1) Renal mass, left Assessment and Plan: Very suspicious for renal cell carcinoma, particularly due to large size (>4 cm ) which also largely precludes any role for biopsy; no reported vascular extension or associated lymphadenopathy that would indicate metastatic disease; no emergent intervention needed but patient will need partial or complete L nephrectomy which 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; -outpatient urology f/u -may benefit from repeat CT with and without contrast for better assessment Status: Acute (2) HTN (hypertension) Assessment and Plan: Appears too tightly controlled and may be causing orthostatic symptoms; currently appears euvolemic on exam; -decrease losartan to 50 mg daily, continue amlodipine 5 mg daily; Status: Acute (3) Hematuria Assessment and Plan: Microscopic hematuria likely due to renal mass but should look for other potential causes including other malignancy; discordance between dipstick heme positivity and minimal/normal amount of RBC's may be simply due to delay in sample analysis; -obtain urine cytology Status: Acute (4) Diabetes mellitus Assessment and Plan: Sugars appear well controlled with A1C 5.7; will check urine for microalbumin/ creatinine to assess for early diabetic nephropathy; Status: Acute
[2016-09-12] MEDS: Sodium Chloride 0.9% 1,000 ML IV SCH ×2 (02:00→05:51)
[2016-09-12 06:32] LABS: BASO # 0.1 K/uL (0.0-0.2); BASO % 0.9 % (0.0-2.0); EOS # 0.4 K/uL (0.0-0.7); EOS % 5.8 % (0.0-4.0); HEMOGLOBIN 11.4 g/dL (12.0-18.0); LYMPH # 1.7 K/uL (1.0-4.3); LYMPH % 25.8 % (20.0-40.0); MEAN CELL VOLUME 88.2 fL (80.0-94.0); MEAN CORPUSCULAR HEMOGLOBIN 29.7 pg (27.0-31.0); MEAN CORPUSCULAR HGB CONC 33.6 g/dL (33.0-37.0); MEAN PLATELET VOLUME 8.4 fL (7.2-11.7); MONO # 0.4 K/uL (0.0-0.8); MONO % 5.3 % (0.0-10.0); NEUT # 4.1 K/uL (1.8-7.0); NEUT % 62.2 % (50.0-75.0); RBC 3.85 Mil/uL (4.40-5.90); RED CELL DISTRIBUTION WIDTH 12.8 % (11.5-14.5); WHITE BLOOD COUNT 6.7 K/uL (4.8-10.8)
[2016-09-12 07:25] LABS: ALBUMIN 3.9 g/dL (3.5-5.0)
[2016-09-12 07:28] LABS: ALB/GLOB RATIO 1.2 (1.0-2.1); ALT/SGPT 69 U/L (21-72); AST/SGOT 54 U/L (17-59); BLOOD UREA NITROGEN 13 mg/dL (9-20); GFR AFRICAN-AMERICAN > 60; GFR NON-AFRICAN AMERICAN > 60
[2016-09-12 07:29] LABS: CALCIUM 9.3 mg/dl (8.6-10.4)
[2016-09-12 07:38] VITALS: BP 129/73; PULSE 56; TEMP 97.7; O2SAT 97
[2016-09-12] MEDS ORDERED: Oxycodone/Acetaminophen 5/325 mg Tab PO PRN (08:05)
[2016-09-12] MEDS ORDERED: Bisacodyl 5mg EC Tab PO ONE (09:39)
[2016-09-12] MEDS: Pantoprazole 40 mg EC Tab PO SCH (11:18)
[2016-09-12] MEDS: POLYETHYLENE GLYCOL 3350 17 GM/Dose PACKET PO SCH (11:18)
--- NOTE | 2016-09-12 17:35 | CP.PCM.DIS ---
<Zully Apple - Last Filed: 09/12/16 17:50> Provider - Provider Date of Admission: 09/05/16 16:09 Attending physician: Abad Motta DO Consults: Dr. Mejía (sequins slinger) Time Spent in preparation of Discharge (in minutes): 45 Diagnosis - Discharge Diagnosis (1) Renal mass Status: Acute Comment: Patient to follow up at [facility] for potential kindey biopsy (2) HTN (hypertension) Status: Acute Comment: continue medications, bp stable (3) Hyperlipidemia Status: Acute Comment: continue medications Hospital Course - Lab Results Lab Results: Most Recent Lab Values WBC 6.7 K/uL (4.8-10.8) 09/12/16 06:20 RBC 3.85 Mil/uL (4.40-5.90) L 09/12/16 06:20 Hgb 11.4 g/dL (12.0-18.0) L 09/12/16 06:20 Hct 34.0 % (35.0-51.0) L 09/12/16 06:20 MCV 88.2 fL (80.0-94.0) 09/12/16 06:20 MCH 29.7 pg (27.0-31.0) 09/12/16 06:20 MCHC 33.6 g/dL (33.0-37.0) 09/12/16 06:20 RDW 12.8 % (11.5-14.5) 09/12/16 06:20 Plt Count 319 K/uL (130-400) 09/12/16 06:20 MPV 8.4 fL (7.2-11.7) 09/12/16 06:20 Neut % (Auto) 62.2 % (50.0-75.0) 09/12/16 06:20 Lymph % (Auto) 25.8 % (20.0-40.0) 09/12/16 06:20 Story % (Auto) 5.3 % (0.0-10.0) 09/12/16 06:20 Eos % (Auto) 5.8 % (0.0-4.0) H 09/12/16 06:20 Baso % (Auto) 0.9 % (0.0-2.0) 09/12/16 06:20 Neut # 4.1 K/uL (1.8-7.0) 09/12/16 06:20 Lymph # 1.7 K/uL (1.0-4.3) 09/12/16 06:20 Story # 0.4 K/uL (0.0-0.8) 09/12/16 06:20 Eos # 0.4 K/uL (0.0-0.7) 09/12/16 06:20 Baso # 0.1 K/uL (0.0-0.2) 09/12/16 06:20 Sodium 140 mmol/L (132-148) 09/12/16 06:20 Potassium 4.0 mmol/L (3.6-5.2) 09/12/16 06:20 Chloride 105 mmol/L (98-107) 09/12/16 06:20 Carbon Dioxide 24 mmol/L (22-30) 09/12/16 06:20 Anion Gap 15 (10-20) 09/12/16 06:20 BUN 13 mg/dL (9-20) 09/12/16 06:20 Creatinine 0.9 MG/DL (0.8-1.5) 09/12/16 06:20 Est GFR ( Amer) > 60 09/12/16 06:20 Est GFR (Non-Af Amer) > 60 09/12/16 06:20 POC Glucose (mg/dL) 116 mg/dL (65-110) H 09/12/16 11:19 Random Glucose 105 mg/dL (75-110) 09/12/16 06:20 Hemoglobin A1c 5.7 % (4.2-6.5) 09/06/16 07:15 Calcium 9.3 mg/dl (8.6-10.4) 09/12/16 06:20 Phosphorus 4.3 mg/dL (2.5-4.5) 09/12/16 06:20 Magnesium 1.9 mg/dL (1.6-2.3) 09/11/16 06:05 Total Bilirubin 0.5 mg/dL (0.2-1.3) 09/12/16 06:20 AST 54 U/L (17-59) 09/12/16 06:20 ALT 69 U/L (21-72) 09/12/16 06:20 Alkaline Phosphatase 48 U/L (38-126) 09/12/16 06:20 Total Creatine Kinase 183 U/L (55-170) H 09/05/16 13:04 CK-MB (Mass) 2.20 ng/mL (0.0-3.38) 09/05/16 13:04 Troponin I, Quant < 0.0120 ng/mL (0.00-0.120) 09/05/16 13:04 Total Protein 7.0 g/dL (6.3-8.3) 09/12/16 06:20 Albumin 3.9 g/dL (3.5-5.0) 09/12/16 06:20 Globulin 3.1 gm/dL (2.2-3.9) 09/12/16 06:20 Albumin/Globulin Ratio 1.2 (1.0-2.1) 09/12/16 06:20 Triglycerides 206 mg/dL (0-149) H 09/06/16 07:11 Cholesterol 214 mg/dL (0-199) H 09/06/16 07:11 LDL Cholesterol Direct 126 mg/dL (0-129) 09/06/16 07:11 HDL Cholesterol 39 mg/dL (30-70) 09/06/16 07:11 Amylase 93 U/L (30-110) 09/05/16 13:04 Lipase 397 U/L (23-300) H 09/05/16 13:04 Urine Color Colorless (YELLOW) 09/11/16 18:35 Urine Clarity Clear (Clear) 09/11/16 18:35 Urine pH 6.0 (5.0-8.0) 09/11/16 18:35 Ur Specific [place] 1.005 (1.003-1.030) 09/11/16 18:35 Urine Protein Negative mg/dL (NEGATIVE) 09/11/16 18:35 Urine Glucose (UA) Normal mg/dL (Normal) 09/11/16 18:35 Urine Ketones Negative mg/dL (NEGATIVE) 09/11/16 18:35 Urine Blood 2+ (NEGATIVE) H 09/11/16 18:35 Urine Nitrate Negative (NEGATIVE) 09/11/16 18:35 Urine Bilirubin Negative (NEGATIVE) 09/11/16 18:35 Urine Urobilinogen Normal mg/dL (0.2-1.0) 09/11/16 18:35 Ur Leukocyte Esterase Neg Donna/uL (Negative) 09/11/16 18:35 Urine WBC (Auto) < 1 /hpf (0-5) 09/09/16 07:31 Urine RBC (Auto) < 1 /hpf (0-3) 09/11/16 18:35 Urine Bacteria Rare (<OCC) 09/09/16 07:31 Urine Microalbumin 60.8 mg/L (0.0-16.6) H 09/11/16 23:15 - Hospital Course Hospital Course: "CC: "abdominal pain" 66 year old male with PMHx of DM, HTN, high cholesterol and triglycerides in the 1000's presents with 1 days history of abdominal pain, back pain, nausea, vomiting. Patient recently arrived from [facility] in June 2016 and has not seen a doctor since then. Patient began to feel ill since yesterday but went to work today anyway. While at work patient felt like he was going to faint. Admits to dizziness and "passing out". Denies LOC, head trauma, fall. As per , patient has felt like this before when his triglycerides were very high. Admits to diffuse abdominal pain that radiates to the back. Admits to nausea and vomiting once today. Patient denies history of pancreatitis. Denies fevers, chills, diarrhea, constipation, SOB. Patient has no chest pain now or before." Patient came to the ED with abdominal pain, back pain, nausea and vomiting. Patient was admitted to rule out acute pancreatitis. Patient had a lipase of 397. Patient has a history of triglycerides in the 1000s. Amylase, lipid panel, HgA1c were checked. Patient felt like he was going to pass out so ECHO and carotid dopplers done. Zofran was given for nausea. Prophylaxis was started with Heparin 5000 U sc q8h, SCDs, and Protonix 40 mg daily. Amylase:93, lipid panel: triglycerides 206, cholesterol 214, LDL 126, and HDL 39, HgA1C- 5.7. Lipids were treated with Gemfibrozil and Crestor. ECHO showed LVEF normal 55-60% , trace to mild tricuspid regurgitation. Carotid doppler was negative. On 09/[address] of the abdomen/ pelvis ruled out pancreatitis and showed enhancing 4.7 cm left upper pole renal mass suspicious for renal cell neoplasm. Multiple bilateral renal cysts. Patient's pain was controlled with percocet. Nephrology was consulted. Dr. Mejía recommended patient to go to larger hospital for a possible kidney biopsy. Patient was cleared for discharge by Dr. Mejía and Dr. Motta. Patient instructed to follow up at a larger teaching hospital such as [facility] or [facility]. Patient told to go to ED if symptoms return or worsen. Patient to take the medications below as prescribed: Gemfibrozil 600 mg PO BID Simvastatin 40 mg PO HS Percocet 5/325 mg BID PRN for 15 days This is a summary of the hospital course. Please see chart for full details. Discharge Exam - Head Exam Head Exam: NORMAL INSPECTION, NORMOCEPHALIC - Eye Exam Eye Exam: EOMI, Normal appearance, PERRL - ENT Exam ENT Exam: Mucous Membranes Moist, Normal Exam - Neck Exam Neck exam: Full Rom, Normal Inspection - Respiratory Exam Respiratory Exam: Clear to PA & Lateral, NORMAL BREATHING PATTERN. absent: Decreased Breath Sounds, Rales, Rhonchi, Wheezes, Respiratory Distress, Stridor - Cardiovascular Exam Cardiovascular Exam: REGULAR RHYTHM, RRR. absent: Gallop, Rubs, Systolic Murmur - GI/Abdominal Exam GI & Abdominal Exam: Normal Bowel Sounds, Unremarkable. absent: Distended, Firm , Guarding - Extremities Exam Extremities exam: full ROM, normal inspection - Back Exam Back exam: CVA tenderness (L), CVA tenderness (R), FULL ROM, NORMAL INSPECTION - Neurological Exam Neurological exam: Alert, Oriented x3 - Psychiatric Exam Psychiatric exam: Anxious, Normal Affect - Skin Skin Exam: Dry, Normal Color, Warm Discharge Plan - Discharge Medications Prescriptions: amLODIPine [Norvasc] 5 mg PO HS #30 Gemfibrozil [Lopid] 600 mg PO BID #60 tab oxyCODONE/Acetaminophen [Percocet 5/325 mg Tab] 1 tab PO BID PRN #30 tab PRN Reason: Pain, Moderate (4-7) Simvastatin 40 mg PO HS #30 tablet - Follow Up Plan Condition: FAIR Disposition: HOME/ ROUTINE Instructions: Low Back Strain (DC), Hypertension (DC), Hypertension (GEN) Additional Instructions: Patient stable for discharge as per Dr. Motta. Patient should continue home medication: Amlodipine 5mg PO HS Patient should additionally take the medications below as prescribed: Gemfibrozil 600 mg PO BID Simvastatin 40 mg PO HS Percocet 5/325 mg BID PRN for 15 days Patient should follow up with [facility] or [facility] within 1 week of discharge. Patient should return to ED immediately if symptoms return or worsen. Instructions discussed with patient who understood and agreed. Referrals: [facility] [Provider Group] [facility] [Provider Group] <Abad Motta - Last Filed: 09/13/16 08:31> Provider - Provider Date of Admission: 09/05/16 16:09 Attending physician: Abad Motta [facility] Course - Lab Results Lab Results: Most Recent Lab Values WBC 6.7 K/uL (4.8-10.8) 09/12/16 06:20 RBC 3.85 Mil/uL (4.40-5.90) L 09/12/16 06:20 Hgb 11.4 g/dL (12.0-18.0) L 09/12/16 06:20 Hct 34.0 % (35.0-51.0) L 09/12/16 06:20 MCV 88.2 fL (80.0-94.0) 09/12/16 06:20 MCH 29.7 pg (27.0-31.0) 09/12/16 06:20 MCHC 33.6 g/dL (33.0-37.0) 09/12/16 06:20 RDW 12.8 % (11.5-14.5) 09/12/16 06:20 Plt Count 319 K/uL (130-400) 09/12/16 06:20 MPV 8.4 fL (7.2-11.7) 09/12/16 06:20 Neut % (Auto) 62.2 % (50.0-75.0) 09/12/16 06:20 Lymph % (Auto) 25.8 % (20.0-40.0) 09/12/16 06:20 Story % (Auto) 5.3 % (0.0-10.0) 09/12/16 06:20 Eos % (Auto) 5.8 % (0.0-4.0) H 09/12/16 06:20 Baso % (Auto) 0.9 % (0.0-2.0) 09/12/16 06:20 Neut # 4.1 K/uL (1.8-7.0) 09/12/16 06:20 Lymph # 1.7 K/uL (1.0-4.3) 09/12/16 06:20 Story # 0.4 K/uL (0.0-0.8) 09/12/16 06:20 Eos # 0.4 K/uL (0.0-0.7) 09/12/16 06:20 Baso # 0.1 K/uL (0.0-0.2) 09/12/16 06:20 Sodium 140 mmol/L (132-148) 09/12/16 06:20 Potassium 4.0 mmol/L (3.6-5.2) 09/12/16 06:20 Chloride 105 mmol/L (98-107) 09/12/16 06:20 Carbon Dioxide 24 mmol/L (22-30) 09/12/16 06:20 Anion Gap 15 (10-20) 09/12/16 06:20 BUN 13 mg/dL (9-20) 09/12/16 06:20 Creatinine 0.9 MG/DL (0.8-1.5) 09/12/16 06:20 Est GFR ( Amer) > 60 09/12/16 06:20 Est GFR (Non-Af Amer) > 60 09/12/16 06:20 POC Glucose (mg/dL) 116 mg/dL (65-110) H 09/12/16 11:19 Random Glucose 105 mg/dL (75-110) 09/12/16 06:20 Hemoglobin A1c 5.7 % (4.2-6.5) 09/06/16 07:15 Calcium 9.3 mg/dl (8.6-10.4) 09/12/16 06:20 Phosphorus 4.3 mg/dL (2.5-4.5) 09/12/16 06:20 Magnesium 1.9 mg/dL (1.6-2.3) 09/11/16 06:05 Total Bilirubin 0.5 mg/dL (0.2-1.3) 09/12/16 06:20 AST 54 U/L (17-59) 09/12/16 06:20 ALT 69 U/L (21-72) 09/12/16 06:20 Alkaline Phosphatase 48 U/L (38-126) 09/12/16 06:20 Total Creatine Kinase 183 U/L (55-170) H 09/05/16 13:04 CK-MB (Mass) 2.20 ng/mL (0.0-3.38) 09/05/16 13:04 Troponin I, Quant < 0.0120 ng/mL (0.00-0.120) 09/05/16 13:04 Total Protein 7.0 g/dL (6.3-8.3) 09/12/16 06:20 Albumin 3.9 g/dL (3.5-5.0) 09/12/16 06:20 Globulin 3.1 gm/dL (2.2-3.9) 09/12/16 06:20 Albumin/Globulin Ratio 1.2 (1.0-2.1) 09/12/16 06:20 Triglycerides 206 mg/dL (0-149) H 09/06/16 07:11 Cholesterol 214 mg/dL (0-199) H 09/06/16 07:11 LDL Cholesterol Direct 126 mg/dL (0-129) 09/06/16 07:11 HDL Cholesterol 39 mg/dL (30-70) 09/06/16 07:11 Amylase 93 U/L (30-110) 09/05/16 13:04 Lipase 397 U/L (23-300) H 09/05/16 13:04 Urine Color Colorless (YELLOW) 09/11/16 18:35 Urine Clarity Clear (Clear) 09/11/16 18:35 Urine pH 6.0 (5.0-8.0) 09/11/16 18:35 Ur Specific [place] 1.005 (1.003-1.030) 09/11/16 18:35 Urine Protein Negative mg/dL (NEGATIVE) 09/11/16 18:35 Urine Glucose (UA) Normal mg/dL (Normal) 09/11/16 18:35 Urine Ketones Negative mg/dL (NEGATIVE) 09/11/16 18:35 Urine Blood 2+ (NEGATIVE) H 09/11/16 18:35 Urine Nitrate Negative (NEGATIVE) 09/11/16 18:35 Urine Bilirubin Negative (NEGATIVE) 09/11/16 18:35 Urine Urobilinogen Normal mg/dL (0.2-1.0) 09/11/16 18:35 Ur Leukocyte Esterase Neg Donna/uL (Negative) 09/11/16 18:35 Urine WBC (Auto) < 1 /hpf (0-5) 09/09/16 07:31 Urine RBC (Auto) < 1 /hpf (0-3) 09/11/16 18:35 Urine Bacteria Rare (<OCC) 09/09/16 07:31 Urine Microalbumin 60.8 mg/L (0.0-16.6) H 09/11/16 23:15 Attending/Attestation - Attestation I have personally seen and examined this patient.: Yes I have fully participated in the care of the patient.: Yes I have reviewed all pertinent clinical information, including history, physical exam and plan: Yes Notes (Text): 09/13/16 08:28 Medical attending: Patient was examined by me, agrees the above note by medical billing assistant. The patient was depressed and sad, I sat down with the security developer again was able to hold give translation. He didn't have any family members this time when we saw him. I again explained that he ultimately needs to try to follow-up with a much larger Medical Center. We also gave him copies of the CT scan, as well as copies of the most recent blood work so that he could have these. I also explained to him that he is certainly able to follow-up at the [facility] however if he does he might not be able to readily do anything for him At this time we'll discharge the patient with pain medication. His vital signs were stable, he was able to walk around fine, he was not under any acute distress, he is tolerating his diet well, going to the bathroom well. His lab work was also stable as well Thank you very much, Abad Motta
== END 2016-09-12 14:40 | disposition home or self-care (01) | DRG 204 ==
LOC: C.ER 12:22 → C.9E 16:09 → C.3T 18:25
PROVIDERS: ADMIT Hospitalist; ATTEND Hospitalist
DX: K85.90 Acute pancreatitis without necrosis or infection, unspecified (principal); N28.1 Cyst of kidney, acquired; I10 Essential (primary) hypertension; K59.00 Constipation, unspecified; E78.5 Hyperlipidemia, unspecified; R31.29 Other microscopic hematuria; Z87.891 Personal history of nicotine dependence; E78.1 Pure hyperglyceridemia; E11.9 Type 2 diabetes mellitus without complications